=== PATIENT | male | born 1965 | race Caucasian/White ===

== ENCOUNTER 2022-01-18 13:21 | Inpatient (IN) | payer OTHER, SELFPAY ==
[2022-01-18] VITALS (10 sets, daily range): BP systolic 132–153; BP diastolic 76–110; PULSE 63–80; RESP 18–22; TEMP 35.9–37; O2SAT 96–99; BMI 25.8
[2022-01-18] MEDS: 0.9 % SODIUM CHLORIDE 1000 ml 1,000 ML IV (13:55)
--- NOTE | 2022-01-18 14:06 | CRLHL7_ITS ---
For Patients: As a result of the 21st Century Cures Act, medical imaging exams and procedure reports are released immediately into your electronic medical record. You may view this report before your referring provider. If you have questions, please contact your health care provider. INDICATION: Pain with nausea, lightheadedness and guarding COMPARISON: None TECHNIQUE: CT examination of the abdomen and pelvis was performed following the uneventful intravenous administration of 93 cc of Isovue 370. Thin section axial images were obtained from the lung bases through the pubic symphysis. Oral contrast was not administered. Please note that all CT scans at this facility use dose modulation, iterative reconstruction, and/or weight-based dosing when appropriate to reduce radiation dose to as low as reasonably achievable. FINDINGS: LUNG BASES: The lung bases as visualized appear normal.The heart size is normal at the lung bases. LIVER/BILIARY SYSTEM:The liver is normal in size and configuration. There is no focal mass and there is no intra- or extra hepatic biliary ductal dilatation.The gall bladder appears normal. ADRENALS: Normal KIDNEYS, URETERS and BLADDER:There is a 1 centimeter low-density lesion in the left upper pole consistent with a cyst. The kidneys are otherwise unremarkable. The ureters are not dilated. The bladder appears normal. SPLEEN:Normal appearance. PANCREAS: Appears normal. RETROPERITONEUM and MESENTERY: There is no mass, adenopathy or aortic aneurysm. GASTROINTESTINAL SYSTEM: The stomach is fluid filled and distended but there is no mechanical gastric outlet obstruction. There is significant abnormal dilation of small bowel with air-fluid levels. This is to the level of the mid small bowel. The point of transition appears been long segment of narrowed small bowel likely representing a stricture. There is no direct visible mass. No visible hernia, internal or abdominal wall. No intussusception. This is best seen on series 4, coronal images 20 through 24. PELVIS: Moderate free fluid presumably related to a small bowel obstruction. OSSEOUS STRUCTURES and ABDOMINAL WALL: There is an age-appropriate appearance of the osseous structures.No significant abdominal wall defect. OTHER: No free air IMPRESSION: High-grade mid small bowel obstruction. The etiology appears to be a long segment stricture as described above. Please note that all CT scans at this facility use dose modulation, iterative reconstruction, and/or weight-based dosing when appropriate to reduce radiation dose to as low as reasonably achievable. Dictated by Fernando Bishop MD @ 01/18/2022 3:12:27 PM (Electronically Signed)
--- NOTE | 2022-01-18 14:10 | ED.ABDPAIN ---
HPI - Abdominal Pain General Chief Complaint: Abdominal Pain Stated Complaint: Abdominal Pain Nausia Time Seen by Provider: 01/18/22 13:57 History of Present Illness HPI narrative: This 56-year-old male comes in with abdominal pain that began at 3:00 a.m. this morning, about 11 hours ago. He states that he woke up with this pain. Since then it has been constant and worsening. He rates the pain at around 8/10 in severity and has had some nausea with 1 episode of vomiting. He states that the pain is worse with movements. He does not report any fevers or diarrhea. Prior to this he has been in good health. Related Data Home Medications Medication Instructions Recorded Confirmed cyanocobalamin (vitamin B-12) 1,000 mcg PO DAILY 01/18/22 01/18/22 1,000 mcg tablet mirtazapine 15 mg tablet 7.5 mg PO HS 01/18/22 01/18/22 Allergies Allergy/AdvReac Type Severity Reaction Status Date / Time No Known Drug Allergies Allergy Verified 01/18/22 13:44 Review of Systems Status of ROS Reports: 10 or more systems reviewed and unremarkable except as noted in History and below Narrative Constitutional: No fevers, no weight gain or loss. Eyes: No discharge. No vision changes. HENT: No congestion, no sore throat, no ear pain. Cardiovascular: No chest pain, no palpitations. Respiratory: No shortness of breath, no wheezes, no cough. Gastrointestinal: Abdominal pain, nausea, and vomiting as described above. No diarrhea. Genitourinary: No dysuria, no hematuria. Musculoskeletal: Normal range of motion. Skin: No rashes, no pruritis. Neurological: No dizziness, weakness, sensory change, speech change. Endo/Heme/Allergies: No bruising or bleeding. No polydipsia. Pysch: no suicidality, no anxiety, no insomnia. All other systems reviewed and are negative. PFSH PFSH Social History Smoking Status: Never smoker How many standard drinks containing alcohol do you have on a typical day: 3 or 4 How often do you have six or more drinks on one occasion: Less than monthly AUDIT-C Alcohol total score: 2 Non-prescribed substance use: denies use service: No Exam Narrative: Exam Narrative: Constitutional: Well-developed, well-nourished, no acute distress. HEENT: Normocephalic, atraumatic. Neck: Normal range of motion. Nontender. Supple. Heart: Regular. No murmurs. Normal rate. Intact distal pulses. Lungs: Clear to auscultation. No chest discomfort. No wheezes, rhonchi, or rales. Abdomen: Decreased bowel sounds. Diffuse tenderness. Guarding. Genitalia: Deferred. Back: No midline tenderness. Normal range of motion. Extremities: Normal range of motion. No injury. Skin: Intact. No rash. Warm. No erythema or pallor. Neurologic: No altered sensation. No weakness. Alert and oriented. Psychiatric: No suicidality. No anxiety or depression. No insomnia. Nursing notes and vitals signs are reviewed. Const: Vital Signs, click to edit/add: Vital Signs - 24 hr 01/18/22 13:46 01/18/22 13:45 01/18/22 14:00 Temperature 96.6 F L Pulse Rate [Pulse Oximeter] 73 63 76 Respiratory Rate Blood Pressure [Le ft Upper Arm] 135/98 H 135/98 H 137/94 H Pulse Oximetry 98 99 97 Oxygen Delivery Me thod Room Air Room Air Room Air 01/18/22 14:30 Temperature Pulse Rate [Pulse Oximeter] 80 Respiratory Rate 20 Blood Pressure [Le ft Upper Arm] 153/110 H Pulse Oximetry 96 Oxygen Delivery Me thod Room Air Course Vital Signs Vital signs: Initial Vital Signs Pulse Rate 63 01/18/22 13:45 Respiratory Rate 22 01/18/22 13:45 Blood Pressure 135/98 H 01/18/22 13:45 Blood Pressure Mean 110 01/18/22 13:45 Blood Pressure Position Sitting 01/18/22 13:45 Pulse Oximetry 99 01/18/22 13:45 Oxygen Delivery Method 01/18/22 13:45 Vital Signs Pulse Rate 63 01/18/22 13:45 Respiratory Rate 22 01/18/22 13:45 Blood Pressure 135/98 H 01/18/22 13:45 Pulse Oximetry 99 01/18/22 13:45 Oxygen Delivery Method 01/18/22 13:45 Temperature 96.6 F L 01/18/22 13:46 Pulse Rate 80 01/18/22 14:30 Respiratory Rate 20 01/18/22 14:30 Blood Pressure 153/110 H 01/18/22 14:30 Pulse Oximetry 96 01/18/22 14:30 Oxygen Delivery Method 01/18/22 14:30 MDM - Abdominal Pain MDM Narrative Medical decision making narrative: This patient comes in with nausea, vomiting, abdominal distension and pain. An IV was established where he received IV fluids, Zofran, and Dilaudid. This brought sufficient relief to his symptoms. Lab results returned with a slightly elevated white count. A CT scan of the abdomen and pelvis was performed which shows evidence of small-bowel obstruction. The patient does not have any prior surgical history to his abdomen. I did contact the surgeon on-call, Dr. Jasso, in this regard and also arrange for admission through the hospitalist, Dr. Alvarado. The patient does have a fair amount of fluid in his abdomen with abdominal distension. An NG tube was placed with suction. Lab Data Labs: Lab Results 01/18/22 01/18/22 01/18/22 Range/Units 14:17 14:23 14:23 WBC 11.12 H (4.50-11.00) K/uL RBC 5.48 (4.30-5.90) m/uL Hgb 17.6 H (13.5-17.5) gm/dL Hct 51.1 (37.0-53.0) % MCV 93 (80-100) fL MCH 32 (26-34) pg MCHC 34 (32-36) gm/dL RDW Coeff of Ansley 11.3 L (11.5-15.5) % Plt Count 310 (140-440) K/uL Neut % (Auto) 81.4 H (42.0-72.0) % Lymph % (Auto) 10.2 L (20-44) % [place] % (Auto) 6.7 (0.0-11.0) % Eos % (Auto) 0.5 (0.0-7.0) % Baso % (Auto) 0.7 (0.0-3.0) % Neut # (Auto) 9.10 H (1.7-7.0) K/uL Lymph # (Auto) 1.10 (0.90-2.90) K/uL [place] # (Auto) 0.70 (0.00-0.90) K/UL Eos # (Auto) 0.10 (0.00-0.50) K/uL Baso # (Auto) 0.10 (0.00-0.30) K/uL Abs Immat Gran (auto) 0.06 (0.00-0.30) K/uL Sodium 137 (135-149) mmol/L Potassium 3.7 (3.6-5.1) mmol/L Chloride 102 (96-114) mmol/L Carbon Dioxide 25 (20-32) mmol/L BUN 13 (7-30) mg/dL Creatinine 0.7 (0.5-1.5) mg/dL Estimated Creat Clear 127.79 Estimated GFR 107 ml/min Glucose 103 (60-115) mg/dL Calcium 10.2 (8.4-10.6) mg/dL Total Bilirubin 1.1 (0.1-1.5) mg/dL Direct Bilirubin 0.2 (0.0-0.5) mg/dL AST 32 (12-35) U/L ALT 31 (4-50) U/L Alkaline Phosphatase 116 (40-150) U/L Total Protein 7.7 (6.0-8.3) g/dL Albumin 4.8 (3.3-5.0) g/dL Lipase 57 (23-300) U/L POC Troponin I 0.00 L (0.01-0.04) ng/ml Imaging Data CT scan - abdomen: Radiologist's impression: LUNG BASES: The lung bases as visualized appear normal.The heart size is normal at the lung bases. LIVER/BILIARY SYSTEM:The liver is normal in size and configuration. There is no focal mass and there is no intra- or extra hepatic biliary ductal dilatation.The gall bladder appears normal. ADRENALS: Normal KIDNEYS, URETERS and BLADDER:There is a 1 centimeter low-density lesion in the left upper pole consistent with a cyst. The kidneys are otherwise unremarkable. The ureters are not dilated. The bladder appears normal. SPLEEN:Normal appearance. PANCREAS: Appears normal. RETROPERITONEUM and MESENTERY: There is no mass, adenopathy or aortic aneurysm. GASTROINTESTINAL SYSTEM: The stomach is fluid filled and distended but there is no mechanical gastric outlet obstruction. There is significant abnormal dilation of small bowel with air-fluid levels. This is to the level of the mid small bowel. The point of transition appears been long segment of narrowed small bowel likely representing a stricture. There is no direct visible mass. No visible hernia, internal or abdominal wall. No intussusception. This is best seen on series 4, coronal images 20 through 24. PELVIS: Moderate free fluid presumably related to a small bowel obstruction. OSSEOUS STRUCTURES and ABDOMINAL WALL: There is an age-appropriate appearance of the osseous structures.No significant abdominal wall defect. OTHER: No free air IMPRESSION: High-grade mid small bowel obstruction. The etiology appears to be a long segment stricture as described above. ECG Data Attestation: I personally reviewed and interpreted this ECG as follows: Interpretation: Normal sinus rhythm. Rate 67 beats per minute. There are no ST or T-wave abnormalities. Discharge Plan Discharge Clinical Impression: Small bowel obstruction Patient Disposition: Admitted As Inpatient Condition: Unchanged Prescriptions: No Action mirtazapine 15 mg tablet 7.5 mg PO HS Label Comments: TAKE 1/2 TABLET (7.5 MG) BY MOUTH AT BEDTIME. cyanocobalamin (vitamin B-12) 1,000 mcg tablet 1,000 mcg PO DAILY Follow Up/Referrals: Markos Reis MD [Primary Care Provider] -
[2022-01-18] MEDS: ONDANSETRON 2 MG/ML inj 4 MG IVP ×4 (14:32→22:31)
[2022-01-18] MEDS: HYDROmorphone 0.5 mg/0.5 ml inj IVP ×2 (14:32→16:30)
[2022-01-18 15:02] LABS: Basophils Percent Auto 0.7 % (0.0-3.0); Eosinophils Percent Auto 0.5 % (0.0-7.0); Hematocrit 51.1 % (37.0-53.0); Hemoglobin* 17.6 gm/dL (13.5-17.5); Immature Granulocytes Abs Auto 0.06 K/uL (0.00-0.30); Lymphocytes Percent Auto 10.2 % (20-44); Mean Corpuscular HGB Conc 34 gm/dL (32-36); Mean Corpuscular Hemoglobin 32 pg (26-34); Mean Corpuscular Volume 93 fL (80-100); Monocytes Percent Auto 6.7 % (0.0-11.0); Neutrophils Percent Auto 81.4 % (42.0-72.0); Platelet Count* 310 K/uL (140-440); RDW Coefficient of Variation % 11.3 % (11.5-15.5); Red Blood Count 5.48 m/uL (4.30-5.90); White Blood Count* 11.12 K/uL (4.50-11.00)
[2022-01-18 15:17] LABS: Slide Review Reflex No
[2022-01-18 15:20] LABS: Albumin* 4.8 g/dL (3.3-5.0); Chloride* 102 mmol/L (96-114); Potassium* 3.7 mmol/L (3.6-5.1); Sodium* 137 mmol/L (135-149)
[2022-01-18 15:22] LABS: Creatinine* 0.7 mg/dL (0.5-1.5); Est. Creatinine Clearance* 127.79; Estimated Glomerular Filt Rate 107 ml/min
[2022-01-18 15:23] LABS: Alanine Aminotransferase* 31 U/L (4-50); Alkaline Phosphatase* 116 U/L (40-150); Aspartate Amino Transferase* 32 U/L (12-35); Bilirubin Direct* 0.2 mg/dL (0.0-0.5); Bilirubin Total* 1.1 mg/dL (0.1-1.5); Blood Urea Nitrogen* 13 mg/dL (7-30); Calcium* 10.2 mg/dL (8.4-10.6); Carbon Dioxide* 25 mmol/L (20-32); Glucose* 103 mg/dL (60-115); Lipase* 57 U/L (23-300); Total Protein* 7.7 g/dL (6.0-8.3)
--- NOTE | 2022-01-18 15:42 | PM.GSCN ---
History of Present Illness Consult details Date Seen: 01/18/22 Consult date: 01/18/22 Narrative: The patient is a 56-year-old male with abdominal pain. He states that his pain began around 330 in the morning. The pain wrapped across his mid abdomen. He thought maybe it was because he was constipated and so he drink orange juice and coffee to try to help him have a bowel movement. He could not get comfortable and the pain became worse. He spoke to a friend of his who is an MD who advised him to go to the emergency department. He states he then vomited and had a small bowel movement. He has not had a fever. He has never had anything like this before. He states that he is uncomfortable but his pain is better since he has been admitted. He states that he normally has 2-3 soft bowel movements a day. He really has when he would consider constipation or firm stools. He did have a colonoscopy at age 48 for blood in his stool. This was reportedly normal. He has never had pain like this before. He does not have chronic abdominal pain or diarrhea. 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 He drinks 1-3 alcoholic beverages per day. He does not smoke. Smoking Status: Never smoker How many standard drinks containing alcohol do you have on a typical day: 3 or 4 How often do you have six or more drinks on one occasion: Less than monthly AUDIT-C Alcohol total score: 2 Non-prescribed substance use: denies use service: No Meds Home Medications and Allergies Home Medications Medication Instructions Recorded Confirmed Type cyanocobalamin (vitamin B-12) 1,000 mcg PO DAILY 01/18/22 01/18/22 History 1,000 mcg tablet mirtazapine 15 mg tablet 7.5 mg PO HS 01/18/22 01/18/22 History Allergies Allergy/AdvReac Type Severity Reaction Status Date / Time No Known Drug Allergies Allergy Verified 01/18/22 13:44 Exam Narrative: Exam Narrative: General: Alert, oriented, no acute distress CV: Regular rate and rhythm Respiratory: Breathing nonlabored on room air HEENT: NG in place. Brownish drainage, 700 mL out so far Abdomen: Mildly distended and somewhat tender to palpation without guarding or rebound. Const: Vital Signs, click to edit/add: Vital Signs - 24 hr 01/18/22 13:46 01/18/22 13:45 01/18/22 14:00 Temperature 96.6 F L Pulse Rate [Pulse Oximeter] 73 63 76 Respiratory Rate 18 22 22 Blood Pressure [Le ft Upper Arm] 135/98 H 135/98 H 137/94 H Pulse Oximetry 98 99 97 Oxygen Delivery Me thod Room Air Room Air Room Air 01/18/22 14:30 Temperature Pulse Rate [Pulse Oximeter] 80 Respiratory Rate 20 Blood Pressure [Le ft Upper Arm] 153/110 H Pulse Oximetry 96 Oxygen Delivery Me thod Room Air Results Labs Labs: Abnormal lab results 01/18/22 01/18/22 Range/Units 14:17 14:23 WBC 11.12 H (4.50-11.00) K/uL Hgb 17.6 H (13.5-17.5) gm/dL RDW Coeff of Ansley 11.3 L (11.5-15.5) % Neut % (Auto) 81.4 H (42.0-72.0) % Lymph % (Auto) 10.2 L (20-44) % Neut # (Auto) 9.10 H (1.7-7.0) K/uL POC Troponin I 0.00 L (0.01-0.04) ng/ml Diabetes panel 01/18/22 Range/Units 14:23 Sodium 137 (135-149) mmol/L Potassium 3.7 (3.6-5.1) mmol/L Chloride 102 (96-114) mmol/L Carbon Dioxide 25 (20-32) mmol/L BUN 13 (7-30) mg/dL Creatinine 0.7 (0.5-1.5) mg/dL Glucose 103 (60-115) mg/dL Calcium 10.2 (8.4-10.6) mg/dL AST 32 (12-35) U/L ALT 31 (4-50) U/L Alkaline Phosphatase 116 (40-150) U/L Total Protein 7.7 (6.0-8.3) g/dL Albumin 4.8 (3.3-5.0) g/dL Calcium panel 01/18/22 Range/Units 14:23 Calcium 10.2 (8.4-10.6) mg/dL Albumin 4.8 (3.3-5.0) g/dL Pituitary panel 01/18/22 Range/Units 14:23 Sodium 137 (135-149) mmol/L Potassium 3.7 (3.6-5.1) mmol/L Chloride 102 (96-114) mmol/L Carbon Dioxide 25 (20-32) mmol/L BUN 13 (7-30) mg/dL Creatinine 0.7 (0.5-1.5) mg/dL Glucose 103 (60-115) mg/dL Calcium 10.2 (8.4-10.6) mg/dL Adrenal panel 01/18/22 Range/Units 14:23 Sodium 137 (135-149) mmol/L Potassium 3.7 (3.6-5.1) mmol/L Chloride 102 (96-114) mmol/L Carbon Dioxide 25 (20-32) mmol/L BUN 13 (7-30) mg/dL Creatinine 0.7 (0.5-1.5) mg/dL Glucose 103 (60-115) mg/dL Calcium 10.2 (8.4-10.6) mg/dL Total Bilirubin 1.1 (0.1-1.5) mg/dL AST 32 (12-35) U/L ALT 31 (4-50) U/L Alkaline Phosphatase 116 (40-150) U/L Total Protein 7.7 (6.0-8.3) g/dL Albumin 4.8 (3.3-5.0) g/dL All other labs normal. Imaging Abdomen CT scan report/results: report reviewed (Diagnostic Imaging Report Patient: Jarod Stevens WMR#: [id number]: [id number]:[id number]: EDService Date: 01/18/22Attending Dr: Ordering Physician: Amari Merino M.D. Date of Service: 01/18/22 Procedure(s): CT abdomen pelvis w con Accession Number(s): [id number] cc: Deshaun Merino) and image reviewed EKG: report reviewed (Normal sinus rhythm) Assessment and Plan Assessment and plan (1) Small bowel obstruction: Status: Acute Plan The patient is a 56-year-old male with a de Mac bowel obstruction. I spoke with him and his about bowel obstructions as well as that the most common cause is adhesions. Since he has not had abdominal surgery, we also must be concerned about malignancy. The CT scan is concerning for a long segment stricture. This can be seen in inflammatory bowel disease. He has no history of this, however. I recommend that we continue with conservative management for now with NG tube placement. I would like him to be to NG suction overnight and I will order Gastrografin study in the morning. I explained the rationale behind this and if the Gastrografin does go all the way through to his colon, not only can it be therapeutic, then it would allow him to discharge home and have further outpatient evaluation. I would consider a small-bowel follow-through to evaluate the possible stricture and even possibly laparoscopy after repeat CT scan once he has recovered. He understands that if the Gastrografin does not pass through then we would plan on surgical exploration. If his pain worsens or he becomes systemically ill as evidence by increasing white count, CRP, lactate, tachycardia etcetera, then I would plan on emergent exploration. He is agreeable with this plan.
--- NOTE | 2022-01-18 16:00 | ED.NURSE ---
~1600 desat to 86% after IV dilaudid given. 2L O2 via NC applied. O2 now at 97%
--- NOTE | 2022-01-18 16:21 | CRLHL7_ITS ---
For Patients: As a result of the Century Cures Act, medical imaging exams and procedure reports are released immediately into your electronic medical record. You may view this report before your referring provider. If you have questions, please contact your health care provider. Indication: Tube placement. Technique: Abdomen 1 view. Comparison: CT abdomen and pelvis earlier same day. Impression: NG tube tip projects over proximal gastric body. Dilated loops of small bowel, consistent with small bowel obstruction. Dictated by Too Duncan MD @ 01/18/2022 6:41:02 PM (Electronically Signed)
[2022-01-18 16:46] LABS: SARS PCR* Negative SARS-CoV-2 (Negative)
--- NOTE | 2022-01-18 17:28 | ED.NURSE ---
Patient had 700 ml out of NG from time of insertion. transferred to floor via wc with significant other.
--- NOTE | 2022-01-18 17:46 | PM.IMHP1 ---
Hospitalist- H&P: HPI History of Present Illness Date Seen: 01/18/22 Chief complaint: Abdominal Pain Nausia Narrative: Jarod Stevens is a 56 year old male who began having abdominal discomfort at 3:00 this morning (15hours ago). He was unable to sleep so got up and had coffee and orange juice. As the morning progressed the abd pain worsened and he vomited once. Pt presented to the ED where he had a large nonblious vomitus. Evaluation in the ED reveled an elevation in his White Blood Cell Count at 11.12. Ekg was normal. CT of the abd and pelvis showed a High Grade Mid Small Bowel Obstruction consistent with a long section stricture. Pt has passed no flatus and has previously had no blood in his stool. He has been feeling well with a long bike ride done last night. No abd surgery and no previous similar symptoms. Pt given normal saline, hydromorphone and zofran in the ED and was subsequently admitted after an NG tube was placed. 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 He drinks 1-3 alcoholic beverages per day. He does not smoke. Smoking Status: Never smoker How many standard drinks containing alcohol do you have on a typical day: 3 or 4 How often do you have six or more drinks on one occasion: Less than monthly AUDIT-C Alcohol total score: 2 Non-prescribed substance use: denies use service: No Meds Home Medications and Allergies Home Medications Medication Instructions Recorded Confirmed Type cyanocobalamin (vitamin B-12) 1,000 mcg PO DAILY 01/18/22 01/18/22 History 1,000 mcg tablet mirtazapine 15 mg tablet 7.5 mg PO HS 01/18/22 01/18/22 History Home Medication Comments: Pt states that currently he is only taking Remeron 7.5 mg at hs Allergies Allergy/AdvReac Type Severity Reaction Status Date / Time No Known Drug Allergies Allergy Verified 01/18/22 13:44 Exam Narrative: Exam Narrative: EXAM GENERAL: Patient appears comfortable with NG in place. EYES: No scleral icterus. THYROID: no thyroid nodules or thyromegaly. LYMPH: No supraclavicular or cervical lymphadenopathy. SKIN: Visible skin seen during exam normal or with benign process only. EXT: No dependent lower extremity pedal edema. HEART: Regular rate and rhythm with no murmurs, rubs, or gallops. LUNGS: Clear to auscultation bilaterally with no crackles or wheezes. ABD: Hypoactive bowel sounds diffusely tending without rebound. PSYCH: Good eye contact, speech is not pressured. Const: Vital Signs, click to edit/add: Vital Signs - 24 hr 01/18/22 13:46 01/18/22 13:45 01/18/22 14:00 Temperature 96.6 F L Pulse Rate [Pulse Oximeter] 73 63 76 Respiratory Rate 18 22 22 Blood Pressure [Le ft Upper Arm] 135/98 H 135/98 H 137/94 H Pulse Oximetry 98 99 97 Oxygen Delivery Me thod Room Air Room Air Room Air Oxygen Flow Rate 01/18/22 14:30 01/18/22 16:00 01/18/22 17:00 Temperature Pulse Rate [Pulse Oximeter] 80 68 Respiratory Rate 20 20 Blood Pressure [Le ft Upper Arm] 153/110 H 144/95 H Pulse Oximetry 96 97 97 Oxygen Delivery Me thod Room Air Nasal Cannula Nasal Cannula Oxygen Flow Rate 2 Hospitalist - H&P: Result Labs Labs: Short CBC 01/18/22 Range/Units 14:17 WBC 11.12 H (4.50-11.00) K/uL Hgb 17.6 H (13.5-17.5) gm/dL Hct 51.1 (37.0-53.0) % Plt Count 310 (140-440) K/uL BMP 01/18/22 14:23 Sodium 137 Potassium 3.7 Chloride 102 Carbon Dioxide 25 BUN 13 Creatinine 0.7 Glucose 103 Calcium 10.2 Liver Function 01/18/22 Range/Units 14:23 Total Bilirubin 1.1 (0.1-1.5) mg/dL Direct Bilirubin 0.2 (0.0-0.5) mg/dL AST 32 (12-35) U/L ALT 31 (4-50) U/L Alkaline Phosphatase 116 (40-150) U/L Albumin 4.8 (3.3-5.0) g/dL Imaging CT scan - abdomen: Radiologist's impression: Abd Film shows small bowel obstruction which is confirmed on CT of the abd and pelvis being a high grade mid small bowel obstruction consistent with long segment stricture. Assessment and Plan Assessment and plan (1) Small bowel obstruction: Status: Acute Assessment and Plan: General Surgery consulted. Electrolytes are stable. Hemoconcentration noted on CBC. NG tube in place to low suction. Bowel rest. Pt feeling better. Will hydrate overnight with CBC, CMP in the AM. Lactate and CRP ordered now. General Surgery considering Gastrographin challenge. Pt to be a full code. Will try to ambulate with assistance. (2) Insomnia: Status: Chronic Assessment and Plan: Will hold on oral Remeron (3) MANUEL (obstructive sleep apnea): Status: Chronic Assessment and Plan: Pt has discontinued his CPAP and his dental apliance. Will place on oxymetry (4) Alcohol use: Problem comment: Pt has up to three alcoholic beverages per day. Status: Chronic Assessment and Plan: Will place on CIWA protocol
[2022-01-18 18:00] LABS: Lactate* 1.5 mmol/L (0.5-1.9)
[2022-01-18] MEDS: 0.9 % SODIUM CHLORIDE 1000 ml 1,000 ML 125 ML IV (18:26)
[2022-01-18] MEDS: LORazepam 2 MG/ML inj 0.5 MG IVP (18:28)
[2022-01-18 19:35] LABS: C Reactive Protein* < 0.5 mg/dL (0.5-1.0)
[2022-01-18] MEDS: PROCHLORPERAZINE 5 MG/ML VIAL IV (19:39)
[2022-01-19] VITALS (12 sets, daily range): BP systolic 125–142; BP diastolic 77–93; PULSE 78–94; RESP 16–18; TEMP 36.7–36.8; O2SAT 91–94
--- NOTE | 2022-01-19 00:06 | PC.NURSE ---
Pt N/V, see MAR for mediction administration with relief. Pt was able to tolerate NG tube clamp for 2 hours while gastrografin was administered @2200. Restarted LIS of NG tube @0000. X-ray ordered for 799 am. Pt states last regular BM Wednesday 01/17, usually has 3 BM daily.
[2022-01-19] MEDS: 0.9 % SODIUM CHLORIDE 1000 ml 1,000 ML 125 ML IV ×3 (02:15→18:37)
[2022-01-19] MEDS: PROCHLORPERAZINE 5 MG/ML VIAL IV ×2 (02:26→11:58)
[2022-01-19 06:24] LABS: Basophils Absolute Auto 0.06 K/uL (0.00-0.30); Basophils Percent Auto 0.6 % (0.0-3.0); Eosinophils Absolute Auto 0.08 K/uL (0.00-0.50); Eosinophils Percent Auto 0.8 % (0.0-7.0); Hematocrit 49.6 % (37.0-53.0); Hemoglobin* 16.7 gm/dL (13.5-17.5); Immature Granulocytes Abs Auto 0.01 K/uL (0.00-0.30); Lymphocytes Percent Auto 6.8 % (20-44); Mean Corpuscular HGB Conc 34 gm/dL (32-36); Mean Corpuscular Hemoglobin 32 pg (26-34); Mean Corpuscular Volume 95 fL (80-100); Monocytes Percent Auto 11.2 % (0.0-11.0); Neutrophils Percent Auto 80.5 % (42.0-72.0); Platelet Count* 278 K/uL (140-440); RDW Coefficient of Variation % 11.6 % (11.5-15.5); Red Blood Count 5.22 m/uL (4.30-5.90); White Blood Count* 10.37 K/uL (4.50-11.00)
[2022-01-19 06:42] LABS: Chloride* 103 mmol/L (96-114); Sodium* 139 mmol/L (135-149)
[2022-01-19 06:45] LABS: Alanine Aminotransferase* 23 U/L (4-50); Alkaline Phosphatase* 81 U/L (40-150); Aspartate Amino Transferase* 25 U/L (12-35); Blood Urea Nitrogen* 20 mg/dL (7-30); Calcium* 8.9 mg/dL (8.4-10.6); Carbon Dioxide* 28 mmol/L (20-32); Creatinine* 0.9 mg/dL (0.5-1.5); Estimated Glomerular Filt Rate 100 ml/min; Glucose* 111 mg/dL (60-115); Total Protein* 6.6 g/dL (6.0-8.3)
--- NOTE | 2022-01-19 06:56 | PC.NURSE ---
Addendum entered by Tyra Delvalle RN 01/19/22 07:03: NG PLACEMENT IN RIGHT NARE AT 53CM. Original Note: END OF SHIFT NOTE: PT QUIET AND COOPERATIVE. PT DENIES CP AND SOB. PT REPORTS NAUSEA THAT WAS RELIEVED WITH NG ON LIS AND ADMINISTRATION OF PRN COMPAZINE. PT ON CONTINUOUS PLUSE OX NOC R/T PT HX OF MANUEL. CIWA SCORES 0 DURING THIS SHIFT. VSS ON RA; AFEBRILE. LSCTA. TOTAL OF 450ML OF BROWN OUTPUT FROM NG. MOVES INDEPENDENTLY TO BATHROOM, HOWEVER REQUIRES ASSISTANCE UNPLUGGING IV POLE AND DISCONNECTING FROM LIS. HYPOACTIVE BS.
[2022-01-19 07:05] LABS: Slide Review Reflex No
--- NOTE | 2022-01-19 08:00 | CRLHL7_ITS ---
For Patients: As a result of the Century Cures Act, medical imaging exams and procedure reports are released immediately into your electronic medical record. You may view this report before your referring provider. If you have questions, please contact your health care provider. INDICATION: Follow-up SBO. COMPARISON: Abdominal radiograph 01/18/2022. CT of the abdomen and pelvis 01/18/2022. TECHNIQUE: Abdomen, 2 views. FINDINGS: Enteric tube with tip projected over the proximal stomach and side hole near the gastroesophageal junction. Enteric contrast within the stomach. Again seen are dilated loops of small bowel in the left abdomen compatible with obstruction. Moderate amount of stool in the ascending colon. No pneumatosis. Excreted contrast within the urinary bladder. The bones are unremarkable. IMPRESSION: 1. Enteric tube with tip projected over the proximal stomach and side hole near the GE junction. 2. Dilated loops of small bowel in the left abdomen compatible with obstruction. Dictated by Radha Deutsch MD @ 01/19/2022 9:56:52 AM (Electronically Signed)
--- NOTE | 2022-01-19 12:58 | PM.GSPN ---
Subjective Subjective Date Seen: 01/19/22 Interval history: Jarod had a large emesis last evening prior to administration of Gastrografin. He has been feeling better since. He has no other nausea. His pain is significantly better. Not passing any gas. Exam Narrative: Exam Narrative: General: No acute distress CV: Regular rate and rhythm HEENT: NG in place with brownish fluid in the canister. 1600 mL out overnight +500 emesis. Abdomen: Soft, nontender. No bowel sounds. Const: Vital Signs, click to edit/add: Vital Signs - 24 hr 01/18/22 13:46 01/18/22 13:45 01/18/22 14:00 Temperature 96.6 F L Pulse Rate [Left P ulse Oximeter] Pulse Rate [Pulse Oximeter] 73 63 76 Respiratory Rate 18 22 22 Blood Pressure [Le ft Upper Arm] 135/98 H 135/98 H 137/94 H Blood Pressure [Ri ght Arm] Pulse Oximetry 98 99 97 Oxygen Delivery Al thod Room Air Room Air Room Air Oxygen Flow Rate 01/18/22 14:30 01/18/22 16:00 01/18/22 17:00 Temperature Pulse Rate [Left P ulse Oximeter] Pulse Rate [Pulse Oximeter] 80 68 Respiratory Rate 20 20 Blood Pressure [Le ft Upper Arm] 153/110 H 144/95 H Blood Pressure [Ri ght Arm] Pulse Oximetry 96 97 97 Oxygen Delivery Al thod Room Air Nasal Cannula Nasal Cannula Oxygen Flow Rate 2 01/18/22 18:06 01/18/22 18:05 01/18/22 19:00 Temperature 98.6 F 98.3 F Pulse Rate [Left P ulse Oximeter] 70 71 Pulse Rate [Pulse Oximeter] Respiratory Rate 20 20 20 Blood Pressure [Le ft Upper Arm] Blood Pressure [Ri ght Arm] 138/80 138/80 132/76 Pulse Oximetry 96 96 97 Oxygen Delivery Me thod Room Air Room Air Room Air Oxygen Flow Rate 01/18/22 19:00 01/18/22 20:00 01/19/22 00:45 Temperature 98.3 F 98.1 F Pulse Rate [Left P ulse Oximeter] 71 92 Pulse Rate [Pulse Oximeter] Respiratory Rate 20 20 16 Blood Pressure [Le ft Upper Arm] Blood Pressure [Ri ght Arm] 132/76 127/82 Pulse Oximetry 97 97 94 Oxygen Delivery Me thod Room Air Room Air Room Air Oxygen Flow Rate 01/19/22 00:45 01/19/22 03:00 01/19/22 07:49 Temperature 98.1 F Pulse Rate [Left P ulse Oximeter] 92 86 94 Pulse Rate [Pulse Oximeter] Respiratory Rate 16 16 18 Blood Pressure [Le ft Upper Arm] Blood Pressure [Ri ght Arm] 125/80 129/86 Pulse Oximetry 93 91 Oxygen Delivery Me thod Room Air Room Air Oxygen Flow Rate 01/19/22 07:50 01/19/22 07:00 01/19/22 11:41 Temperature 98.1 F 98.2 F Pulse Rate [Left P ulse Oximeter] 94 94 87 Pulse Rate [Pulse Oximeter] Respiratory Rate 18 18 16 Blood Pressure [Le ft Upper Arm] Blood Pressure [Ri ght Arm] 129/86 134/93 H Pulse Oximetry 91 94 Oxygen Delivery Me thod Room Air Room Air Oxygen Flow Rate 2 01/19/22 11:53 Temperature 98.2 F Pulse Rate [Left P ulse Oximeter] 87 Pulse Rate [Pulse Oximeter] Respiratory Rate 16 Blood Pressure [Le ft Upper Arm] Blood Pressure [Ri ght Arm] 134/93 H Pulse Oximetry 94 Oxygen Delivery Me thod Room Air Oxygen Flow Rate 0 Labs/Imaging Labs Labs: White blood cell count is down to 10 from 11. Lactate and CRP yesterday were normal. Imaging Imaging: KUB from this morning shows contrast only in the stomach with persistent dilated small bowel loops. I did discuss the CT scan with Radiology and he looked the images together, looking for the transition point/stricture/looking for possible masses. Progress Note: A&P Assessment and plan (1) Small bowel obstruction: Problem details: The patient is a 56-year-old male with de Mac small bowel obstruction. He is feeling markedly better today, however unfortunately his Gastrografin is sitting in his stomach still. I told him that this means that is less likely to resolve on his own. However this is not necessarily a bad thing since this is a de Mac obstruction, then exploration is certainly warranted if he does not resolve quickly. He we will plan on NG decompression overnight and repeat x-ray in the morning. If he has not made significant progress then I would plan on surgery tomorrow afternoon. We discussed laparotomy, possibly a bowel resection as well as recovery. If he does make some progress I explained that we could plan to give him 1 more day if he does make some progress overnight, however I told him that I thought earlier exploration may be better given that we do not know the cause for the obstruction. He and his asked excellent questions and were agreeable with the plan. Continue NG suction and NPO status today. Will recheck labs in the morning. Status: Acute
--- NOTE | 2022-01-19 15:24 | PM.IMPN1 ---
Progress Note: A&P Assessment and plan (1) Small bowel obstruction: Problem details: The patient is a 56-year-old male with de Mac small bowel obstruction. He is feeling markedly better today, however unfortunately his Gastrografin is sitting in his stomach still. I told him that this means that is less likely to resolve on his own. However this is not necessarily a bad thing since this is a de Mac obstruction, then exploration is certainly warranted if he does not resolve quickly. He we will plan on NG decompression overnight and repeat x-ray in the morning. If he has not made significant progress then I would plan on surgery tomorrow afternoon. We discussed laparotomy, possibly a bowel resection as well as recovery. If he does make some progress I explained that we could plan to give him 1 more day if he does make some progress overnight, however I told him that I thought earlier exploration may be better given that we do not know the cause for the obstruction. He and his asked excellent questions and were agreeable with the plan. Continue NG suction and NPO status today. Will recheck labs in the morning. Status: Acute Assessment and Plan: Primarily managed by General surgery. If patient were to need surgical intervention, he is low risk for anesthesia or surgical complications. No history of cardiac or respiratory disease. Labs have been reassuring. (2) MANUEL (obstructive sleep apnea): Status: Chronic Assessment and Plan: Quiescent Plan Continue SBO management per general surgery, hospitalist team will follow. Subjective Date Seen: 01/19/22 Interval history: Patient seen with today. They have no concerns for the hospitalist team. Exam Narrative: Exam Narrative: Patient is alert and oriented, sitting comfortably in bed. Drainage noted from NG tube. No lower extremity edema, wearing Freddy hose. Const: Vital Signs, click to edit/add: Vital Signs - 24 hr 01/18/22 16:00 01/18/22 17:00 01/18/22 18:06 Temperature Pulse Rate [Left P ulse Oximeter] Pulse Rate [Pulse Oximeter] 68 Respiratory Rate 20 20 Blood Pressure [Le ft Upper Arm] 144/95 H Blood Pressure [Ri ght Arm] 138/80 Pulse Oximetry 97 97 96 Oxygen Delivery Me thod Nasal Cannula Nasal Cannula Room Air Oxygen Flow Rate 2 01/18/22 18:05 01/18/22 19:00 01/18/22 19:00 Temperature 98.6 F 98.3 F 98.3 F Pulse Rate [Left P ulse Oximeter] 70 71 71 Pulse Rate [Pulse Oximeter] Respiratory Rate 20 20 20 Blood Pressure [Le ft Upper Arm] Blood Pressure [Ri ght Arm] 138/80 132/76 132/76 Pulse Oximetry 96 97 97 Oxygen Delivery Me thod Room Air Room Air Room Air Oxygen Flow Rate 01/18/22 20:00 01/19/22 00:45 01/19/22 00:45 Temperature 98.1 F Pulse Rate [Left P ulse Oximeter] 92 92 Pulse Rate [Pulse Oximeter] Respiratory Rate 20 16 16 Blood Pressure [Le ft Upper Arm] Blood Pressure [Ri ght Arm] 127/82 Pulse Oximetry 97 94 Oxygen Delivery Me thod Room Air Room Air Oxygen Flow Rate 01/19/22 03:00 01/19/22 07:49 01/19/22 07:50 Temperature 98.1 F 98.1 F Pulse Rate [Left P ulse Oximeter] 86 94 94 Pulse Rate [Pulse Oximeter] Respiratory Rate 16 18 18 Blood Pressure [Le ft Upper Arm] Blood Pressure [Ri ght Arm] 125/80 129/86 129/86 Pulse Oximetry 93 91 91 Oxygen Delivery Me thod Room Air Room Air Room Air Oxygen Flow Rate 2 01/19/22 07:00 01/19/22 11:41 01/19/22 11:53 Temperature 98.2 F 98.2 F Pulse Rate [Left P ulse Oximeter] 94 87 87 Pulse Rate [Pulse Oximeter] Respiratory Rate 18 16 16 Blood Pressure [Le ft Upper Arm] Blood Pressure [Ri ght Arm] 134/93 H 134/93 H Pulse Oximetry 94 94 Oxygen Delivery Me thod Room Air Room Air Oxygen Flow Rate 0 Labs Labs: Laboratory Results - last 24 hr 01/18/22 01/18/22 01/18/22 14:23 15:35 17:56 WBC RBC Hgb Hct MCV MCH MCHC RDW Coeff of [place] Plt Count Neut % (Auto) Lymph % (Auto) [place] % (Auto) Eos % (Auto) Baso % (Auto) Neut # (Auto) Lymph # (Auto) [place] # (Auto) Eos # (Auto) Baso # (Auto) Abs Immat Gran (auto) Sodium 137 Potassium 3.7 Chloride 102 Carbon Dioxide 25 BUN 13 Creatinine 0.7 Estimated Creat Clear 127.79 Estimated GFR 107 Glucose 103 Lactate Calcium 10.2 Total Bilirubin 1.1 Direct Bilirubin 0.2 AST 32 ALT 31 Alkaline Phosphatase 116 C-Reactive Protein < 0.5 L Total Protein 7.7 Albumin 4.8 Lipase 57 SARS-CoV-2 (PCR) Negative SARS-CoV-2 01/18/22 01/19/22 01/19/22 17:56 06:05 06:05 WBC 10.37 RBC 5.22 Hgb 16.7 Hct 49.6 MCV 95 MCH 32 MCHC 34 RDW Coeff of [place] 11.6 Plt Count 278 Neut % (Auto) 80.5 H Lymph % (Auto) 6.8 L [place] % (Auto) 11.2 H Eos % (Auto) 0.8 Baso % (Auto) 0.6 Neut # (Auto) 8.30 H Lymph # (Auto) 0.70 L [place] # (Auto) 1.20 H Eos # (Auto) 0.08 Baso # (Auto) 0.06 Abs Immat Gran (auto) 0.01 Sodium 139 Potassium 4.0 Chloride 103 Carbon Dioxide 28 BUN 20 Creatinine 0.9 Estimated Creat Clear 99.40 Estimated GFR 100 Glucose 111 Lactate 1.5 Calcium 8.9 Total Bilirubin 1.0 Direct Bilirubin AST 25 ALT 23 Alkaline Phosphatase 81 C-Reactive Protein Total Protein 6.6 Albumin 4.0 Lipase SARS-CoV-2 (PCR)
[2022-01-19] MEDS: ONDANSETRON 2 MG/ML inj 4 MG IVP (16:25)
[2022-01-19] MEDS: MORPHINE 2 MG/ML inj IVP ×3 (16:43→22:28)
--- NOTE | 2022-01-19 19:00 | PC.NURSE ---
End of shift-- Very pleasant and cooperative, alert and oriented patient. VSS and pt is afebrile. SPO2 maintained >90% on RA while awake. He c/o some abdominal discomfort this evening and Dr. Glover was notified. Pt was given Morphine per MD order and stated relief. CIWAs 0-2. LS CTA. BS very hypoactive to absent this evening. He denies passing flatus. He has c/o nausea twice today and was given Compazine and Zofran and stated relief. NG is patent to LIS and drained approximately 200ml of brown gastric contents today. Pt voided only about 150ml of dark eugenio concentrated urine during the day and an additional 100ml this afternoon. Note was left with charge nurse for MD. He ambulated in the hallway with twice today and tolerated it well. Report to oncoming shift.
[2022-01-20] VITALS (8 sets, daily range): BP systolic 120–145; BP diastolic 77–90; PULSE 71–86; RESP 14–18; TEMP 36.7–37; O2SAT 91–93
[2022-01-20] MEDS: MORPHINE 2 MG/ML inj IVP ×2 (00:42→06:31)
[2022-01-20] MEDS: 0.9 % SODIUM CHLORIDE 1000 ml 1,000 ML 125 ML IV ×3 (02:01→21:24)
[2022-01-20 06:40] LABS: Basophils Absolute Auto 0.04 K/uL (0.00-0.30); Basophils Percent Auto 0.5 % (0.0-3.0); Eosinophils Absolute Auto 0.18 K/uL (0.00-0.50); Eosinophils Percent Auto 2.2 % (0.0-7.0); Hemoglobin* 15.6 gm/dL (13.5-17.5); Immature Granulocytes Abs Auto 0.04 K/uL (0.00-0.30); Lymphocytes Percent Auto 13.9 % (20-44); Mean Corpuscular HGB Conc 33 gm/dL (32-36); Mean Corpuscular Hemoglobin 32 pg (26-34); Mean Corpuscular Volume 97 fL (80-100); Monocytes Percent Auto 11.1 % (0.0-11.0); Neutrophils Absolute Auto 5.98 K/uL (1.7-7.0); Neutrophils Percent Auto 71.8 % (42.0-72.0); Platelet Count* 260 K/uL (140-440); RDW Coefficient of Variation % 11.5 % (11.5-15.5); Red Blood Count 4.84 m/uL (4.30-5.90); White Blood Count* 8.32 K/uL (4.50-11.00)
[2022-01-20 06:41] LABS: Slide Review Reflex No
--- NOTE | 2022-01-20 06:44 | PC.NURSE ---
[id number]: Patient pleasant and cooperative. SBA d/t NG tube and IV. Walked halls x1. Rates pain 3/10. PRN Morphine x4 administered for relief. Denies passing flatus. Reports mild nausea, declined antiemetics. NG patent and putting out small amounts of green gastric contents. BS hypo on LLQ and LUQ at beginning of shift but absent at end of shift, absent on RUQ and RLQ all shift.
--- NOTE | 2022-01-20 08:00 | CRLHL7_ITS ---
For Patients: As a result of the Century Cures Act, medical imaging exams and procedure reports are released immediately into your electronic medical record. You may view this report before your referring provider. If you have questions, please contact your health care provider. Indication: Follow-up obstruction Technique: Abdomen 1 view. Comparison: 01/19/2022 Findings: Contrast now located in the right colon. NG tube in the stomach. Mild small bowel wall/mucosal thickening again noted. No extravasation. No pleural effusion. Impression: No small bowel obstruction. Residual mild inflammation of the small bowel. Dictated by Yousif Burch MD @ 01/20/2022 8:46:11 AM (Electronically Signed)
[2022-01-20 09:23] LABS: Chloride* 105 mmol/L (96-114); Potassium* 3.9 mmol/L (3.6-5.1); Sodium* 139 mmol/L (135-149)
[2022-01-20 09:26] LABS: Blood Urea Nitrogen* 24 mg/dL (7-30); Calcium* 8.5 mg/dL (8.4-10.6); Carbon Dioxide* 26 mmol/L (20-32); Creatinine* 0.7 mg/dL (0.5-1.5); Est. Creatinine Clearance* 127.79; Estimated Glomerular Filt Rate 107 ml/min; Glucose* 96 mg/dL (60-115)
[2022-01-20] MEDS: phenoL 1.4 % THROAT SPRAY 1 SPRAY MUCOUS MEM (10:00)
--- NOTE | 2022-01-20 11:06 | PM.GSPN ---
Subjective Subjective Date Seen: 01/20/22 Interval history: Jarod is feeling better today. No flatus yet. No nausea. Exam Narrative: Exam Narrative: General: No acute distress NG in place. Output [place] accurately charted though per nursing and has decreased Abdomen: Soft. Minimally tender. Hypoactive bowel sounds noted. Const: Vital Signs, click to edit/add: Vital Signs - 24 hr 01/19/22 11:41 01/19/22 11:53 01/19/22 16:22 Temperature 98.2 F 98.2 F Pulse Rate [Left P ulse Oximeter] 87 87 78 Respiratory Rate 16 16 16 Blood Pressure [Ri ght Arm] 134/93 H 134/93 H 135/89 Pulse Oximetry 94 94 93 Oxygen Delivery Me thod Room Air Room Air Room Air Oxygen Flow Rate 0 01/19/22 16:34 01/19/22 16:00 01/19/22 15:00 Temperature 98.2 F 98.2 F Pulse Rate [Left P ulse Oximeter] 78 78 78 Respiratory Rate 16 16 16 Blood Pressure [Ri ght Arm] 135/89 135/89 Pulse Oximetry 93 93 Oxygen Delivery Me thod Room Air Room Air Oxygen Flow Rate 0 0 01/19/22 20:00 01/19/22 20:00 01/20/22 00:00 Temperature 98.3 F 98.3 F 98.4 F Pulse Rate [Left P ulse Oximeter] 85 85 86 Respiratory Rate 16 16 16 Blood Pressure [Ri ght Arm] 142/77 H 142/77 H 134/77 Pulse Oximetry 92 92 92 Oxygen Delivery Me thod Room Air Room Air Room Air Oxygen Flow Rate 0 01/20/22 00:00 01/20/22 04:00 01/20/22 04:00 Temperature 98.4 F 98.6 F 98.6 F Pulse Rate [Left P ulse Oximeter] 86 86 86 Respiratory Rate 16 18 18 Blood Pressure [Ri ght Arm] 134/77 131/78 131/78 Pulse Oximetry 92 91 91 Oxygen Delivery Me thod Room Air Room Air Room Air Oxygen Flow Rate 0 01/20/22 07:43 01/20/22 07:43 Temperature 98.2 F Pulse Rate [Left P ulse Oximeter] 81 81 Respiratory Rate 16 16 Blood Pressure [Ri ght Arm] 130/85 Pulse Oximetry 91 Oxygen Delivery Me thod Room Air Oxygen Flow Rate 0 Labs/Imaging Labs Labs: White blood cell count within normal limits Electrolytes within normal limits Imaging Imaging: Abdominal x-ray shows contrast in right colon. Still some dilatation of small-bowel loops. Progress Note: A&P Assessment and plan (1) Small bowel obstruction: Status: Acute Plan The patient is a 56-year-old male with de Mac small bowel obstruction. Overall he is doing well. He has had passage of contrast into the colon which is great news. I told him that I a.m. still a bit concerned about the dilated small bowel however it can take time for this to completely resolve. I recommend continuing the NG tube to gravity as well as advancing his diet very slowly. He should be made NPO at midnight just in case he fails to progress and we decide to proceed to the OR tomorrow (again we still do not know the cause of the obstruction at this time). If he develops nausea or vomiting his NG should be placed back to suction and he should be made NPO. He is otherwise healthy and is ambulating however I will discuss with the hospitalist about Lovenox.
--- NOTE | 2022-01-20 12:28 | P.IMPN_ITS ---
Progress Note: A&P Assessment and plan (1) Small bowel obstruction: Status: Acute Assessment and Plan: Primary management per general surgery. No concerns from hospitalist team, will continue to follow. (2) Insomnia: Status: Chronic Assessment and Plan: Restart home mirtazapine dosing. Plan 56-year-old male admitted for SBO, primary management per General surgery. Will initiate Lovenox today for prophylaxis. Time Spent With Patient Total time spent: 15 Subjective Date Seen: 01/20/22 Interval history: Patient starting to pass gas, reassuring XR this morning. Would like to restart home Mirtazapine for sleep tonight. No other concerns for hospitalist team. Exam Const: Vital Signs, click to edit/add: Vital Signs - 24 hr 01/19/22 16:22 01/19/22 16:34 01/19/22 16:00 Temperature 98.2 F 98.2 F Pulse Rate [Left P ulse Oximeter] 78 78 78 Respiratory Rate 16 16 16 Blood Pressure [Ri ght Arm] 135/89 135/89 135/89 Pulse Oximetry 93 93 93 Oxygen Delivery Me thod Room Air Room Air Room Air Oxygen Flow Rate 0 0 01/19/22 15:00 01/19/22 20:00 01/19/22 20:00 Temperature 98.3 F 98.3 F Pulse Rate [Left P ulse Oximeter] 78 85 85 Respiratory Rate 16 16 16 Blood Pressure [Ri ght Arm] 142/77 H 142/77 H Pulse Oximetry 92 92 Oxygen Delivery Me thod Room Air Room Air Oxygen Flow Rate 0 01/20/22 00:00 01/20/22 00:00 01/20/22 04:00 Temperature 98.4 F 98.4 F 98.6 F Pulse Rate [Left P ulse Oximeter] 86 86 86 Respiratory Rate 16 16 18 Blood Pressure [Ri ght Arm] 134/77 134/77 131/78 Pulse Oximetry 92 92 91 Oxygen Delivery Me thod Room Air Room Air Room Air Oxygen Flow Rate 0 01/20/22 04:00 01/20/22 07:43 01/20/22 07:43 Temperature 98.6 F 98.2 F Pulse Rate [Left P ulse Oximeter] 86 81 81 Respiratory Rate 18 16 16 Blood Pressure [Ri ght Arm] 131/78 130/85 Pulse Oximetry 91 91 Oxygen Delivery Me thod Room Air Room Air Oxygen Flow Rate 0 Labs Labs: Laboratory Results - last 24 hr 01/20/22 01/20/22 05:56 05:56 WBC 8.32 RBC 4.84 Hgb 15.6 Hct 47.0 MCV 97 MCH 32 MCHC 33 RDW Coeff of [place] 11.5 Plt Count 260 Neut % (Auto) 71.8 Lymph % (Auto) 13.9 L [place] % (Auto) 11.1 H Eos % (Auto) 2.2 Baso % (Auto) 0.5 Neut # (Auto) 5.98 Lymph # (Auto) 1.20 [place] # (Auto) 0.90 Eos # (Auto) 0.18 Baso # (Auto) 0.04 Abs Immat Gran (auto) 0.04 Sodium 139 Potassium 3.9 Chloride 105 Carbon Dioxide 26 BUN 24 Creatinine 0.7 Estimated Creat Clear 127.79 Estimated GFR 107 Glucose 96 Calcium 8.5
[2022-01-20] MEDS: ENOXAPARIN 40 MG/0.4 ML INJ SUBCUT (13:55)
--- NOTE | 2022-01-20 18:26 | PC.NURSE ---
: Pt. up indep. in room and halls this shift. Bowel sounds hypoactive x4, denied nausea/pain/other issues entire shift. Denied flatus until 1800, when pt. reported small, loose bowel movement, with a plug of stool. NG in right nare to 53cm, sticker replaced today. IVF running NS @ 125/hr. NG currently draining to gravity, w/no output this shift. Updated MD; no new orders. IV replaced left forearm d/t IV leaking in right AC earlier today. RN attempted to replace x3, then supervisor tank house able to obtain access. Good urine output.
[2022-01-20] MEDS: MIRTAZAPINE 15 MG TABLET 7.5 MG PO (21:23)
[2022-01-21] VITALS (23 sets, daily range): BP systolic 121–148; BP diastolic 73–86; PULSE 61–79; RESP 14–18; TEMP 36.6–36.9; O2SAT 88–98
[2022-01-21] MEDS: 0.9 % SODIUM CHLORIDE 1000 ml 1,000 ML 125 ML IV ×2 (04:54→14:31)
[2022-01-21] MEDS: SIMETHICONE 80 MG TAB.CHEW 160 MG PO ×2 (04:56→09:18)
--- NOTE | 2022-01-21 06:28 | PC.NURSE ---
Shift Note -: Pt pleasant and cooperative, VSS with continued elevated BP as recorded on previous shifts, afebrile. Pt up ad keiko in room and encouraged to walk in the [place]. Pt tolerated clear liquid diet, but c/o of fullness in his center upper gastric area after consuming 2 cups of broth and a juice. Pt reported no flatus since the BM earlier in the day. Zero gastric output observed by 2300, NG tube flushed with 40mL of tap water then connected to L/I suction with 100mL gastric output observed @ 0300 check. Pt c/o continued fullness and requested something for acid reflux. Simethicone tabs administered with relief. Pt returned to gravity drain and able to sleep again. Pt has been NPO since midnight with the exception of Simethicone chew tabs as per Dr. Jasso's dictation for surgical intervention possibility. CIWA scores have continued to be 0. New PIV inserted @ 2230 into right wrist is patent and asymptomatic with NS running @ 125mL. See eMAR for medication administration.
--- NOTE | 2022-01-21 09:56 | XR_ITS ---
Final Report Patient: CLARA TREVIZO Facility:?[facility] Patient ID:?[id number] Site Patient ID:?[id number]. Site :?[id number] Study:?XRay Abdomen SUPINE-01/21/2022 10:14:54 AM Ordering Physician:Aman Amaya Final Report: INDICATION: Small-bowel obstruction TECHNIQUE: Abdomen 2 view. COMPARISON: Radiographs 01/20/2022, 01/19/2022, 01/18/[address] 01/18/2022 FINDINGS: Bowel: Increased gaseous distention of small bowel measuring up to 6 cm in diameter, previously 4 cm. Contrast is noted throughout the colon. Partial visualization of enteric tube. Soft tissues: No sign of free air. No sign of soft tissue mass. No suspicious calcifications. Vasectomy clips. Bones: Unremarkable for age. IMPRESSION: Increased gaseous distension of small bowel concerning for worsening obstruction. Dictated by Reid Heredia MD @ 01/21/2022 11:01:33 AM (Electronic Signature)
--- NOTE | 2022-01-21 11:02 | PM.GSPN ---
Subjective Subjective Date Seen: 01/21/22 Interval history: Jarod had 2 small bowel movements, however, last evening after a day of drainage to gravity and trying broth, he felt significantly worse regarding pain and distension. He was placed back to suction. He feels that his pain is worse today than yesterday. Exam Narrative: Exam Narrative: General: No acute distress HEENT: NG in place with minimal output CV: Regular rate and rhythm Respiratory: Breathing nonlabored on room Abdomen: Mildly distended and tender to palpation, especially in the left lower abdomen. Const: Vital Signs, click to edit/add: Vital Signs - 24 hr 01/20/22 15:55 01/20/22 15:55 01/20/22 19:00 Temperature 98.1 F 98.5 F Pulse Rate [Left P ulse Oximeter] 71 71 75 Respiratory Rate 16 16 14 Blood Pressure [Ri ght Arm] 131/81 145/87 H Pulse Oximetry 93 93 Oxygen Delivery Me thod Room Air Room Air Oxygen Flow Rate 0 0 01/20/22 23:57 01/20/22 23:57 01/20/22 23:00 Temperature 98.2 F 98.2 F Pulse Rate [Left P ulse Oximeter] 74 74 74 Respiratory Rate 14 16 16 Blood Pressure [Ri ght Arm] 145/90 H 145/90 H Pulse Oximetry 91 91 Oxygen Delivery Me thod Room Air Room Air Oxygen Flow Rate 0 0 01/21/22 03:00 01/21/22 08:15 01/21/22 08:15 Temperature 98.3 F 98.4 F Pulse Rate [Left P ulse Oximeter] 78 79 79 Respiratory Rate 16 18 18 Blood Pressure [Ri ght Arm] 140/84 H 144/83 H Pulse Oximetry 92 94 Oxygen Delivery Me thod Room Air Room Air Oxygen Flow Rate 0 Labs/Imaging Imaging Imaging: Abdominal x-ray obtained today shows worsening dilatation of small-bowel loops in the left abdomen. There is however continuing contrast in the colon. Progress Note: A&P Assessment and plan (1) Small bowel obstruction: Status: Acute Plan The patient is a 56-year-old male with an oval small-bowel obstruction. It seems as though this obstruction is partial since he did have passage of contrast after 48 hours, however he again has worsening dilatation of his small bowel. He also has having worsening pain today. Since this is adenoma obstruction and we still do not know the cause, I discussed with him and his about exploration. I think that it is warranted at this time since he is worsened after oral challenge. I explained that if we knew for sure that this was likely an adhesive obstruction then sometimes we will wait longer before proceeding to the OR, however because we do not know the etiology, I think it is duffy is to proceed with exploration. We discussed the risks, benefits and recovery from surgery. He understands that bowel resection may be required depending on the findings. We will plan on surgery today. We will obtain some labs preoperatively.
[2022-01-21 11:10] LABS: Basophils Absolute Auto 0.05 K/uL (0.00-0.30); Basophils Percent Auto 0.5 % (0.0-3.0); Eosinophils Absolute Auto 0.15 K/uL (0.00-0.50); Eosinophils Percent Auto 1.6 % (0.0-7.0); Hematocrit 42.6 % (37.0-53.0); Hemoglobin* 14.4 gm/dL (13.5-17.5); Immature Granulocytes Abs Auto 0.02 K/uL (0.00-0.30); Lymphocytes Percent Auto 11.8 % (20-44); Mean Corpuscular HGB Conc 34 gm/dL (32-36); Mean Corpuscular Hemoglobin 32 pg (26-34); Mean Corpuscular Volume 96 fL (80-100); Monocytes Percent Auto 10.1 % (0.0-11.0); Neutrophils Percent Auto 75.8 % (42.0-72.0); Platelet Count* 227 K/uL (140-440); RDW Coefficient of Variation % 11.5 % (11.5-15.5); Red Blood Count 4.46 m/uL (4.30-5.90); White Blood Count* 9.25 K/uL (4.50-11.00)
--- NOTE | 2022-01-21 11:27 | PM.GSPRC ---
Operative Note Date of procedure: 01/21/22 Type of Procedure: 1. Exploratory laparotomy 2. Lysis of adhesions Procedure Description: After discussing the risks and benefits of the procedure, the patient signed informed consent.? The operative site was marked and the patient was brought to the operating room and placed on the operating table in supine position.? Care was taken to pad the patient's pressure points.?? The patient was then intubated by anesthesia.?? The operative site was then prepped and draped in the usual sterile fashion.? A time-out was then performed. The midline abdominal incision was made about the umbilicus. Dissection was carried down to the subcutaneous tissue using cautery. The fascia was incised with cautery. The fascia was then grasped between 2 Rk clamps and Metzenbaum scissors was used to incise the peritoneum. The fascia and peritoneum were then opened along the length of the incision. There was serous ascites within the abdomen. The small bowel distally was decompressed. I lifted up the omentum and began to evaluate the bowel. Immediately I encountered an adhesion which divided with finger fracture. I then began running the bowel toward the ligament of Treitz. EN route I encountered another adhesive band from the mesentery across the small bowel. I divided this with cautery. Once I reached ligament Treitz I then ran the bowel distally toward the terminal ileum. The proximal bowel was dilated however there was no ischemia. The distal bowel was decompressed and healthy appearing the 2 areas where the obstruction was present were visible. There was no stricture noted. No serosal tears were noted. There were no masses within the small bowel or mesentery noted. The ascitic fluid was then suctioned from the abdomen. The fascia was then closed with looped 0 Maxon in a running fashion. The dermis was closed with 3 0 Vicryl suture. The skin was then closed with 4 0 Monocryl running subcuticular sutures. Sterile dressings were then applied. ? The patient was then woken and transported to the recovery area in stable condition. ? The patient tolerated the procedure well. Findings: Small-bowel obstruction secondary to adhesive band, possible closed loop. Bowel appeared viable. No masses. Anesthesia: GETA Surgeon: Shana Jasso MD Estimated blood loss (mL): 5 Condition: stable Disposition: PACU
[2022-01-21] MEDS: PIPERACILLIN/TAZOBACTAM 3.375 GM in 0.9 % SODIUM CHLORIDE Mini-bag 100 ML IVPB (11:45)
[2022-01-21 11:54] LABS: Slide Review Reflex No
[2022-01-21 11:59] LABS: Chloride* 105 mmol/L (96-114); Sodium* 138 mmol/L (135-149)
[2022-01-21 12:00] LABS: Potassium* 3.7 mmol/L (3.6-5.1)
[2022-01-21 12:02] LABS: Carbon Dioxide* 24 mmol/L (20-32); Creatinine* 0.6 mg/dL (0.5-1.5); Est. Creatinine Clearance* 149.09; Estimated Glomerular Filt Rate 113 ml/min
[2022-01-21 12:03] LABS: Blood Urea Nitrogen* 13 mg/dL (7-30); Calcium* 8.5 mg/dL (8.4-10.6); Glucose* 89 mg/dL (60-115)
[2022-01-21] MEDS: LACTATED RINGERS 1000 ML IV (12:09)
--- NOTE | 2022-01-21 12:21 | W.PM.NB ---
Nerve Block Nerve Block Time Seen by Provider: 11:45 Date Seen: 01/21/22 Type of block requested by surgeon for post-operative analgesia: TAP Side: bilateral Time out performed: Yes Verification of patient name: Yes Verification of date of : Yes Site marking: not applicable Name of person performing procedure: Erick Archer CRNA Continuous monitoring Was continuous monitoring of O2 sat, B/P, manager cardiac cath, recorded every 15 minutes?: Yes Procedure Checklist: sterile prep, needles and gloves Ultrasound guided. Images saved: Yes Medications given in 5ml increments after negative aspiration: Marcaine and Exparel Patient tolerated procedure well: Yes Block Charges Block Charge (with Pro Fee): TAP Bilateral Use of Ultrasound Machine for Block: Yes- US Guidance/pain block
--- NOTE | 2022-01-21 12:22 | SUR.OPER ---
PATIENT QUESTIONS ANSWERED SATISFACTORILY PREOPERATIVELY. PATIENT BROUGHT TO OR #4 PER MED/SURG BED. Patient positioned supine on OR #4 bed.? Perioperative team supported bilateral arms on arm boards. Final approval of positioning by surgeon.
--- NOTE | 2022-01-21 12:30 | SUR.OPER ---
pt. family updated by phone call at [phone].
--- NOTE | 2022-01-21 12:59 | P.IMPN_ITS ---
Progress Note: A&P Assessment and plan (1) Small bowel obstruction: Status: Acute Assessment and Plan: I reviewed my impression with the patient, his , and his general surgeon. Agree with intent of bringing patient to the OR for exploratory laparoscopy. Continue with IV fluids, analgesics, antiemetics p.r.n.. Continue with NG tube suctioning for now. (2) Alcohol use: Problem details: Pt has up to three alcoholic beverages per day. Status: Chronic Assessment and Plan: No evidence of alcohol withdrawal at this time. Continue to monitor. (3) MANUEL (obstructive sleep apnea): Status: Chronic Assessment and Plan: Continue to monitor and support. (4) Insomnia: Status: Chronic Assessment and Plan: Continue to support. Plan Answered patient's and 's questions to their satisfaction. They are agreeable with above stated plans and recommendations at this juncture. Time Spent With Patient Total time spent: 30 minutes Subjective Time Seen by Provider: 09:00 Date Seen: 01/21/22 Interval history: 56-year-old man with [place] small-bowel obstruction, no obvious apparent etiology, and still not resolved despite conservative interventions. Perhaps was feeling better yesterday until he tried clear liquids and then has had increased abdominal discomfort since. Acknowledges 2 small bowel movements overnight but not passing flatus. Back on nasogastric suctioning. Denies nausea vomiting. Tolerating walking through the hallways. Denies chest heaviness, pressure, tightness, or pain. Denies syncope or near- syncope. Denies palpitations. Denies dyspnea at rest or paroxysmal nocturnal dyspnea or orthopnea. Denies dyspnea with exertion. Exam Narrative: Exam Narrative: Alert, oriented to self, place, time, situation. Articulate. Thoughtful. Cooperative. Friendly. Mood and affect are congruent. Lungs are clear to auscultation. Heart tones with regular rhythm. Abdomen with occasional bowel sounds, mildly distended, subjectively uncomfortable to palpation in suprapubic area. Extremities without edema. Palpable pulses upper and lower extremities. Independent in transfer, station, and gait. No tremor, asterixis, or ataxia. Cranial nerves 3-12 grossly intact. Skin is warm, dry, intact. No petechiae, rashes, or cyanosis. Const: Vital Signs, click to edit/add: Vital Signs - 24 hr 01/20/22 15:55 01/20/22 15:55 01/20/22 19:00 Temperature 98.1 F 98.5 F Pulse Rate [Left P ulse Oximeter] 71 71 75 Respiratory Rate 16 16 14 Blood Pressure [Ri ght Arm] 131/81 145/87 H Pulse Oximetry 93 93 Oxygen Delivery Me thod Room Air Room Air Oxygen Flow Rate 0 0 01/20/22 23:57 01/20/22 23:57 01/20/22 23:00 Temperature 98.2 F 98.2 F Pulse Rate [Left P ulse Oximeter] 74 74 74 Respiratory Rate 14 16 16 Blood Pressure [Ri ght Arm] 145/90 H 145/90 H Pulse Oximetry 91 91 Oxygen Delivery Me thod Room Air Room Air Oxygen Flow Rate 0 0 01/21/22 03:00 01/21/22 08:15 01/21/22 08:15 Temperature 98.3 F 98.4 F Pulse Rate [Left P ulse Oximeter] 78 79 79 Respiratory Rate 16 18 18 Blood Pressure [Ri ght Arm] 140/84 H 144/83 H Pulse Oximetry 92 94 Oxygen Delivery Me thod Room Air Room Air Oxygen Flow Rate 0 Labs Labs: Laboratory Results - last 24 hr 01/21/22 01/21/22 11:05 11:05 WBC 9.25 RBC 4.46 Hgb 14.4 Hct 42.6 MCV 96 MCH 32 MCHC 34 RDW Coeff of [place] 11.5 Plt Count 227 Neut % (Auto) 75.8 H Lymph % (Auto) 11.8 L Richardson % (Auto) 10.1 Eos % (Auto) 1.6 Baso % (Auto) 0.5 Neut # (Auto) 7.00 Lymph # (Auto) 1.10 Richardson # (Auto) 0.90 Eos # (Auto) 0.15 Baso # (Auto) 0.05 Abs Immat Gran (auto) 0.02 Sodium 138 Potassium 3.7 Chloride 105 Carbon Dioxide 24 BUN 13 Creatinine 0.6 Estimated Creat Clear 149.09 Estimated GFR 113 Glucose 89 Calcium 8.5 Imaging Abdominal x-ray: Attestation: I have reviewed the pertinent imaging results. Radiologist's impression: My interpretation of the results is that the small bowel dilatation is worse today than yesterday. Does have oral contrast in the colon still.
--- NOTE | 2022-01-21 13:08 | W.ANESCHARGE ---
Anesthesia Charges Start Date/Time Anesthesia Start Date: 01/21/22 Anesthesia Start Time: 11:39 Stop Date/Time Anesthesia Stop Date: 01/21/22 Anesthesia Stop Time: 13:07 Summary Emergency: Yes
[2022-01-21] MEDS: fentaNYL 100 MCG/2 ML inj 50 MCG IVP ×2 (13:20→13:25)
--- NOTE | 2022-01-21 13:32 | SUR.PHASEI ---
D) PT. C/O PAIN - 10/04 I) FENTANYL - SEE EMAR A) PT. STATES PAIN IS BETTER - -07/07. P) CONTINUE TO MONITOR PT. COMFORT LEVEL AND TREAT PER ORDERS.
--- NOTE | 2022-01-21 13:42 | SUR.PHASEI ---
VSS, TRANSFER PT. TO M/S VIA BED.
[2022-01-21] MEDS: MORPHINE 2 MG/ML inj IVP (14:15)
[2022-01-21] MEDS: SODIUM CHLORIDE 0.9 % (FLUSH) 10 ML SYRINGE IVF (14:15)
[2022-01-21] MEDS: HYDROmorphone 0.5 mg/0.5 ml inj IVP ×3 (15:38→23:15)
[2022-01-21] MEDS: LACTATED RINGERS 1000 ML 1,000 ML 125 ML IV ×2 (15:54→23:22)
--- NOTE | 2022-01-21 17:37 | XR_ITS ---
Final Report Patient: CLARA TREVIZO Facility:?[facility] Patient ID:?[id number] Site Patient ID:?[id number]. Site :?[id number] Study:?XRay Abdomen 1 VIEW-01/21/2022 5:58:56 PM Ordering Physician:Ankit Saldana Final Report: INDICATION: NG tube placement TECHNIQUE: Abdomen 1 view. COMPARISON: Radiograph 01/21/2022 FINDINGS: Bowel: Enteric tube is been advanced with the tip and side hole under the left hemidiaphragm, likely in the stomach. Contrast media throughout the colon. Persistent gas-filled dilated loops of small bowel. Soft tissues: No sign of free air. No sign of soft tissue mass. No suspicious calcifications. Bones: Unremarkable for age. IMPRESSION: Enteric tube with tip and side hole in the stomach. Persistent gas-filled loops of small bowel suggest ongoing obstruction. Dictated by Reid Heredia MD @ 01/21/2022 6:02:56 PM (Electronic Signature)
[2022-01-21] MEDS: KETOROLAC 15 MG/ML inj IVP ×2 (17:47→23:19)
--- NOTE | 2022-01-21 20:00 | PC.NURSE ---
: Pt. up indep. in halls and room. Surgery this morning just before noon, returned to floor at 1400. Frequent vitals stable, afebrile. Dressing to midline abdomen C/D/I. Pain controlled from PRN meds. Urinated 725 cc since surgery. Educated on log rolling, bracing and deep breathing, patient compliant. at bedside this shift. Pt. returned w/NG tub at 51 inches, vs. leaving at 53 inches, which placement was verified this morning. Updated Dr. Jasso after attempting to advance by another RN. Xray obtained, verified placement. Currently at 63 inches; adequate placement per Dr. Jasso. NG to LIS at this time, minimal output. TEDS/SCDs in use. Continues to be NPO.
[2022-01-21] MEDS: MIRTAZAPINE 15 MG TABLET 7.5 MG PO (20:23)
[2022-01-22] VITALS (7 sets, daily range): BP systolic 131–156; BP diastolic 78–88; PULSE 67–79; RESP 16; TEMP 36.6–36.8; O2SAT 92–97
[2022-01-22] MEDS: HYDROmorphone 0.5 mg/0.5 ml inj IVP ×6 (04:43→20:38)
[2022-01-22] MEDS: KETOROLAC 15 MG/ML inj IVP ×3 (04:50→17:34)
--- NOTE | 2022-01-22 04:58 | PC.NURSE ---
Shift Note -: Pt pleasant and cooperative, VSS, afebrile, up in room ad keiko. NG tube in place to 63cm, to L/I suction with zero output into canister, minimal in tubing, nose pad replaced. BS absent, Pt satisfied with pain control regimen with Dilaudid 0.5mg Q2 and Toradol 15mg Q6. Pt has remained NPO per surgeon's note.
[2022-01-22 07:11] LABS: Hematocrit 40.2 % (37.0-53.0); Hemoglobin* 13.7 gm/dL (13.5-17.5); Mean Corpuscular HGB Conc 34 gm/dL (32-36); Mean Corpuscular Hemoglobin 32 pg (26-34); Mean Corpuscular Volume 95 fL (80-100); Platelet Count* 244 K/uL (140-440); Red Blood Count 4.23 m/uL (4.30-5.90); White Blood Count* 9.02 K/uL (4.50-11.00)
[2022-01-22 07:17] LABS: Slide Review Reflex No
[2022-01-22 07:29] LABS: Chloride* 104 mmol/L (96-114); Potassium* 3.7 mmol/L (3.6-5.1); Sodium* 135 mmol/L (135-149)
[2022-01-22 07:32] LABS: Carbon Dioxide* 25 mmol/L (20-32); Creatinine* 0.7 mg/dL (0.5-1.5); Est. Creatinine Clearance* 127.79; Estimated Glomerular Filt Rate 107 ml/min
[2022-01-22 07:33] LABS: Blood Urea Nitrogen* 13 mg/dL (7-30); Glucose* 81 mg/dL (60-115)
[2022-01-22] MEDS: LACTATED RINGERS 1000 ML 1,000 ML 125 ML IV ×2 (08:44→18:23)
--- NOTE | 2022-01-22 09:09 | PM.GSPN ---
Subjective Subjective Date Seen: 01/22/22 Interval history: The patient is a 56-year-old male who is postop day 1 status post ex lap and lysis of adhesions for bowel obstruction. He is doing well overall. He is having some postoperative pain but has no nausea. Not moving his bowels. Exam Narrative: Exam Narrative: General: No acute distress NG in place without significant output CV: Regular rate and rhythm Respiratory: Clear to auscultation bilaterally Abdomen: Mildly distended and appropriately tender for the postoperative state. Dressing is clean and dry intact. Positive bowel sounds. Extremities: No pedal edema Const: Vital Signs, click to edit/add: Vital Signs - 24 hr 01/21/22 13:02 01/21/22 13:20 01/21/22 13:30 Temperature 98.2 F 98.1 F Pulse Rate 65 67 62 Pulse Rate [Left P ulse Oximeter] Respiratory Rate 16 14 14 Blood Pressure 148/86 H 139/76 134/79 Blood Pressure [Ri ght Arm] Pulse Oximetry 94 95 97 Oxygen Delivery Me thod OxyMask Room Air OxyMask Oxygen Flow Rate 10 10 01/21/22 13:45 01/21/22 13:05 01/21/22 13:10 Temperature 98.1 F Pulse Rate 69 62 63 Pulse Rate [Left P ulse Oximeter] Respiratory Rate 16 18 14 Blood Pressure 134/80 147/84 H 145/79 H Blood Pressure [Ri ght Arm] Pulse Oximetry 95 96 98 Oxygen Delivery Me thod Room Air Blow By OxyMask OxyMask Oxygen Flow Rate 10 10 01/21/22 13:15 01/21/22 13:25 01/21/22 13:35 Temperature 98.3 F Pulse Rate 63 68 61 Pulse Rate [Left P ulse Oximeter] Respiratory Rate 18 14 14 Blood Pressure 140/80 H 133/78 131/77 Blood Pressure [Ri ght Arm] Pulse Oximetry 98 94 97 Oxygen Delivery Me thod OxyMask OxyMask Blow By OxyMask Oxygen Flow Rate 6 10 10 01/21/22 13:40 01/21/22 14:00 01/21/22 14:00 Temperature Pulse Rate 62 72 Pulse Rate [Left P ulse Oximeter] 75 Respiratory Rate 14 16 16 Blood Pressure 131/76 Blood Pressure [Ri ght Arm] 136/81 131/78 Pulse Oximetry 95 90 Oxygen Delivery Me thod Blow By Room Air Room Air Oxygen Flow Rate 10 01/21/22 14:15 01/21/22 14:30 01/21/22 15:00 Temperature 98 F Pulse Rate Pulse Rate [Left P ulse Oximeter] 72 66 74 Respiratory Rate 16 16 Blood Pressure Blood Pressure [Ri ght Arm] 127/74 131/74 132/74 Pulse Oximetry 88 92 92 Oxygen Delivery Me thod Room Air OxyMask OxyMask Oxygen Flow Rate 1 1 01/21/22 15:30 01/21/22 16:00 01/21/22 17:00 Temperature Pulse Rate Pulse Rate [Left P ulse Oximeter] 76 77 74 Respiratory Rate 16 16 15 Blood Pressure Blood Pressure [Ri ght Arm] 125/73 129/74 126/75 Pulse Oximetry 92 93 93 Oxygen Delivery Me thod OxyMask OxyMask OxyMask Oxygen Flow Rate 1 1 1 01/21/22 18:00 01/21/22 19:00 01/21/22 22:43 Temperature 97.8 F Pulse Rate Pulse Rate [Left P ulse Oximeter] 75 69 72 Respiratory Rate 16 16 16 Blood Pressure Blood Pressure [Ri ght Arm] 132/78 130/75 121/73 Pulse Oximetry 92 92 92 Oxygen Delivery Me thod OxyMask OxyMask OxyMask Oxygen Flow Rate 1 1 01/21/22 23:00 01/21/22 23:00 01/22/22 03:00 Temperature 97.8 F 98.0 F Pulse Rate Pulse Rate [Left P ulse Oximeter] 72 76 76 Respiratory Rate 16 16 16 Blood Pressure Blood Pressure [Ri ght Arm] 121/73 131/78 Pulse Oximetry 92 92 Oxygen Delivery Me thod Room Air Room Air Oxygen Flow Rate Labs/Imaging Labs Labs: Labs within normal limits today. Imaging Imaging: Abdominal x-ray from last night because of concern for NG displacement shows NG in the stomach. Persistently dilated loops of small bowel consistent with postoperative state. Progress Note: A&P Assessment and plan (1) Small bowel obstruction: Status: Acute (2) S/P exploratory laparotomy: Status: Acute Plan The patient is a 56-year-old male now postop day 1 status post exploratory laparotomy and lysis of adhesions for small-bowel obstruction. Overall he is progressing appropriately. We discussed the risks/benefits of NG removal. It has not put much out any does have positive bowel sounds, however I do expect a significant ileus postoperatively. He understands that he may feel more distended and uncomfortable if we remove it, however without prolonged ileus likely it would not need to be replaced. He is going to go very slowly with his oral intake and only takes sips of ice chips etc. for comfort. -DC NG today -encourage IS and ambulation -continue NPO except for sips and chips/IV fluids -Lovenox for DVT prophylaxis.
[2022-01-22] MEDS: ENOXAPARIN 40 MG/0.4 ML INJ SUBCUT (13:03)
--- NOTE | 2022-01-22 13:58 | PC.NURSE ---
Addendum entered by Violetta Chang RN 01/22/22 19:23: Addendum: Right wrist IV infiltrated as RN about to give pain meds. Attempted to start, unable to gain IV access. Requested warehouse order picker attempt. She placed a 20g in R hand on 4th attempt. Total of 5 attempts. IVF restarted after pain meds given. Alternating between aqua K pad and ice packs. Original Note: Updated Dr. Jasso re: pain consistently 5/10 2 hrs. after pain meds (initially does decrease to 2/10). Given Toradol x1, Dilaudid x3 this shift. No new orders from MD. Alternating heat/ice, walking, repositioning and rest. No flatus yet, few small belches. NG removed, pt. much happier. Denies need for antiemetics w/short-lived nausea after IV pain meds. Using IS indep. to 2500cc. Abdominal dressing clean and dry, small spot of drainage circled/dated.
--- NOTE | 2022-01-22 20:25 | PC.NURSE ---
Left VM for Sharlene patient advocate, to meet with patient at earliest convenience per patient request.
[2022-01-22] MEDS: MIRTAZAPINE 15 MG TABLET 7.5 MG PO (21:46)
[2022-01-22] MEDS: HYDROCODONE-ACETAMIN 5-325 MG 1 TAB PO (21:46)
[2022-01-23] MEDS: HYDROCODONE-ACETAMIN 5-325 MG 1 TAB PO ×5 (02:22→22:37)
[2022-01-23] MEDS: LACTATED RINGERS 1000 ML 1,000 ML 125 ML IV (02:23)
[2022-01-23 02:59] VITALS: BP 143/88; PULSE 77; RESP 16; TEMP 36.7; O2SAT 97
--- NOTE | 2022-01-23 05:59 | PC.NURSE ---
Shift Note -: Pt pleasant and cooperative, VSS, afebrile, PIV in left hand patent and asymptomatic with maintenance fluids running. Pt reports no gas and no BM, BS hypoactive. Abd tender, dressing CDI. Pt is requesting abd binder for support while up and walking, will pass along to oncoming nurse to request order from surgeon. Pt tolerating sips of juice and PO meds well rating pain 4-5/10 pre-medication reduced to 2/10 post medication, denies nausea. Pt able to rest well overnight. See eMAR for medication administration.
[2022-01-23 07:00] VITALS: BP 131/81; PULSE 67; RESP 12; TEMP 36.8; O2SAT 93
--- NOTE | 2022-01-23 08:36 | PM.GSPN ---
Subjective Subjective Date Seen: 01/23/22 Interval history: Taught is doing well today. NG tube removed without nausea. He is having significant urine output. Still having some abdominal pain which is 5/10. Not passing any gas. Exam Narrative: Exam Narrative: No acute distress CV: Regular rate and rhythm Respiratory: Breathing nonlabored on room air Abdomen: Mildly distended. Appropriate for the postoperative state. There is ecchymosis about the incision. There is a small amount of erythema noted this is very faint. Const: Vital Signs, click to edit/add: Vital Signs - 24 hr 01/22/22 10:44 01/22/22 14:40 01/22/22 15:00 Temperature 98 F 97.9 F Pulse Rate [Left P ulse Oximeter] 68 68 68 Respiratory Rate 16 16 16 Blood Pressure [Ri ght Arm] 135/84 136/83 Pulse Oximetry 93 92 Oxygen Delivery Me thod Room Air Room Air 01/22/22 19:30 01/22/22 23:00 01/22/22 23:00 Temperature 98.0 F 98.0 F Pulse Rate [Left P ulse Oximeter] 70 67 67 Respiratory Rate 16 16 16 Blood Pressure [Ri ght Arm] 156/88 H 144/88 H Pulse Oximetry 97 97 Oxygen Delivery Me thod Room Air Room Air 01/23/22 02:59 Temperature 98.0 F Pulse Rate [Left P ulse Oximeter] 77 Respiratory Rate 16 Blood Pressure [Ri ght Arm] 143/88 H Pulse Oximetry 97 Oxygen Delivery Me thod Room Air Progress Note: A&P Assessment and plan (1) S/P exploratory laparotomy: Status: Acute Assessment and Plan: The patient is a 56-year-old male postop day 2 status post ex lap for small bowel obstruction due to adhesions. He is doing well overall. He seems as though he may have started to mobilize some of his fluids. I will turn down his IV fluids today. He has been ambulating and doing IS which I encouraged him to continue. -he may have sips of liquids but I would hold off on advancing diet until he is passing gas. There is some very faint erythema and bruising around the incision. I will start Keflex as portion of the erythema is blanchable. Continue Lovenox for DVT prophylaxis
[2022-01-23] MEDS: CEFAZOLIN 2 GM in 0.9 % SODIUM CHLORIDE Mini-bag 100 ML IVPB ×2 (09:46→17:04)
[2022-01-23 11:00] VITALS: BP 140/84; PULSE 73; RESP 15; O2SAT 94
[2022-01-23] MEDS: ENOXAPARIN 40 MG/0.4 ML INJ SUBCUT (12:13)
[2022-01-23 15:00] VITALS: BP 137/86; PULSE 67; RESP 18; TEMP 37; O2SAT 95
--- NOTE | 2022-01-23 15:50 | PC.NURSE ---
Shift [id number] pt this shift tolerating ice and chips. per MD lombardo, able to have juice and popsicle as tolerated. Walking halls independently, per pt passing small amounts of gas. IV fluids decreased d/t excessive amounts of urine output. Dressing CDI. Pain treated with [place], see eMAR.
[2022-01-23 19:00] VITALS: BP 136/86; PULSE 67; RESP 18; TEMP 36.8; O2SAT 96
[2022-01-23] MEDS: MIRTAZAPINE 15 MG TABLET 7.5 MG PO (22:38)
[2022-01-23] MEDS: LACTATED RINGERS 1000 ML 1,000 ML 75 ML IV (22:40)
[2022-01-23 23:00] VITALS: BP 143/71; PULSE 63; RESP 16; TEMP 36.8; O2SAT 92
[2022-01-24] VITALS (7 sets, daily range): BP systolic 127–147; BP diastolic 85–100; PULSE 60–68; RESP 12–20; TEMP 36.4–36.9; O2SAT 92–96
[2022-01-24] MEDS: CEFAZOLIN 2 GM in 0.9 % SODIUM CHLORIDE Mini-bag 100 ML IVPB ×2 (00:55→08:54)
[2022-01-24] MEDS: HYDROCODONE-ACETAMIN 5-325 MG 1 TAB PO ×5 (05:18→23:57)
--- NOTE | 2022-01-24 05:38 | PC.NURSE ---
Shift Note -: Pt pleasant and cooperative, VSS, afebrile, pain well controlled with [place] 1-2 tabs. LS clear, BS hypoactive, Pt states he has passed a small amount of flatus. Pt has had large amount of urinary output consistently over the last several shifts, stating that he has been up nearly hourly to urinate. Dr. Chapin called to request SL for Pt comfort and restful night, no new orders given. Pt education provided on walking frequently to encourage return of bowel function. See eMAR for medication administration.
[2022-01-24 06:58] LABS: Chloride* 102 mmol/L (96-114)
[2022-01-24 06:59] LABS: Basophils Absolute Auto 0.05 K/uL (0.00-0.30); Basophils Percent Auto 0.9 % (0.0-3.0); Eosinophils Absolute Auto 0.38 K/uL (0.00-0.50); Eosinophils Percent Auto 6.7 % (0.0-7.0); Hematocrit 41.1 % (37.0-53.0); Hemoglobin* 14.3 gm/dL (13.5-17.5); Immature Granulocytes Abs Auto 0.01 K/uL (0.00-0.30); Lymphocytes Percent Auto 18.3 % (20-44); Mean Corpuscular HGB Conc 35 gm/dL (32-36); Mean Corpuscular Hemoglobin 32 pg (26-34); Mean Corpuscular Volume 93 fL (80-100); Neutrophils Absolute Auto 3.51 K/uL (1.7-7.0); Neutrophils Percent Auto 61.9 % (42.0-72.0); Platelet Count* 260 K/uL (140-440); Potassium* 3.2 mmol/L (3.6-5.1); RDW Coefficient of Variation % 11.6 % (11.5-15.5); Red Blood Count 4.41 m/uL (4.30-5.90); Sodium* 140 mmol/L (135-149); White Blood Count* 5.67 K/uL (4.50-11.00)
[2022-01-24 07:01] LABS: Creatinine* 0.6 mg/dL (0.5-1.5); Est. Creatinine Clearance* 149.09; Estimated Glomerular Filt Rate 113 ml/min; Slide Review Reflex No
[2022-01-24 07:02] LABS: Blood Urea Nitrogen* 4 mg/dL (7-30); Calcium* 8.4 mg/dL (8.4-10.6); Carbon Dioxide* 28 mmol/L (20-32); Glucose* 99 mg/dL (60-115)
[2022-01-24] MEDS: ENOXAPARIN 40 MG/0.4 ML INJ SUBCUT (11:23)
--- NOTE | 2022-01-24 11:40 | P.GSPN_ITS ---
Subjective Subjective Date Seen: 01/24/22 Interval history: Jarod said he passed gas twice since surgery. No nausea. Had some popsicles overnight. Pain is somewhat better tolerated with the oral pain medications. He has been ambulating and using his IS. Exam Narrative: Exam Narrative: General: No acute distress CV: Regular rate and rhythm Respiratory: Clear bilaterally Abdomen: Mildly distended and soft. Ecchymosis about the incision. He does have a pinpoint rash on his abdomen anteriorly. Faint erythema at near the incision yesterday is noted to be gone today. Const: Vital Signs, click to edit/add: Vital Signs - 24 hr 01/23/22 15:00 01/23/22 15:00 01/23/22 19:00 Temperature 98.6 F 98.2 F Pulse Rate [Left P ulse Oximeter] 67 67 67 Respiratory Rate 18 18 18 Blood Pressure [Ri ght Arm] 137/86 136/86 Pulse Oximetry 95 96 Oxygen Delivery Me thod Room Air Room Air 01/23/22 23:00 01/23/22 23:00 01/24/22 03:00 Temperature 98.3 F Pulse Rate [Left P ulse Oximeter] 63 63 Respiratory Rate 16 16 16 Blood Pressure [Ri ght Arm] 143/71 H Pulse Oximetry 92 Oxygen Delivery Me thod Room Air 01/24/22 05:15 01/24/22 07:00 01/24/22 11:00 Temperature 98.3 F 98 F 98 F Pulse Rate [Left P ulse Oximeter] 66 62 63 Respiratory Rate 20 12 12 Blood Pressure [Ri ght Arm] 147/87 H 132/97 H 127/85 Pulse Oximetry 94 92 96 Oxygen Delivery Me thod Room Air Room Air Room Air Labs/Imaging Labs Labs: Hemoglobin, white blood cell normal Electrolytes normal except for mild hypokalemia. Progress Note: A&P Assessment and plan (1) Hypokalemia: Status: Acute (2) S/P exploratory laparotomy: Status: Acute (3) Ileus: Status: Acute Plan The patient is a 56-year-old male status post exploratory laparotomy and lysis of adhesions for bowel obstruction. He is still waiting for full return of bowel function. -okay to increase liquid intake, but holding off on tray since he is still somewhat distended and has only passed a small amount of gas -mild hypokalemia today. Will replace potassium IV since concern for ileus. -abdominal rash which may be secondary to the prep since it is not around the in cision and is on his abdomen in the area of his prep. However will hold Ancef today as well since there is no more erythema around the incision. -continue Lovenox for DVT prophylaxis. Some bruising around incision but is stable. -anticipate 1-2 more days inpatient. Okay to advance diet when he has more robust return of bowel function.
[2022-01-24] MEDS: LACTATED RINGERS 1000 ML 1,000 ML 75 ML IV (13:37)
[2022-01-24] MEDS: POTASSIUM CHLORIDE 10 MEQ/100 ML PIGGYBACK 100 MEQ IVPB ×2 (13:59→15:22)
--- NOTE | 2022-01-24 15:23 | PC.NURSE ---
shift [id number] pt this shift calm and cooperative. Took a shower independently. Seen walking the halls multiple times this shift. No BM but per pt, passing small amounts of gas. Tolerating a popsicle. Potassium at 3.1, treated with IV potassium chloride see eMAR. Pain treated with norco, see eMAR. IV running 75ml/hr, patent, asymptomatic.
[2022-01-24] MEDS: MIRTAZAPINE 15 MG TABLET 7.5 MG PO (22:01)
--- NOTE | 2022-01-24 22:34 | PC.NURSE ---
Shift Note [id number]: Pt friendly and cooperative. Independent and ambulating hallways frequently. VSS and LS COA. Surgical dressing C,D,&I, pt is using icepack PRN. Rates pain 4/10, 2 tabs [place] given PRN. Tolerating small amounts of clears, he did have a popsicle this evening and some ice chips. Abdomen soft and tender with active bowel sounds throughout. Pt verbalizes slight increase in flatus but no BM.
[2022-01-25] VITALS (8 sets, daily range): BP systolic 127–144; BP diastolic 91–99; PULSE 58–67; RESP 16–18; TEMP 36.6–36.7; O2SAT 92–97
[2022-01-25] MEDS: LACTATED RINGERS 1000 ML 1,000 ML 75 ML IV (02:13)
[2022-01-25] MEDS: HYDROCODONE-ACETAMIN 5-325 MG 1 TAB PO ×2 (04:06→15:24)
--- NOTE | 2022-01-25 07:00 | PC.NURSE ---
END OF SHIFT NOTE: PT PLEASANT AND COOPERATIVE. PT AMBULATES INDEPENDENTLY IN ROOM. VSS ON RA; AFEBRILE. PT RATES LOWER ABDOMINAL PAIN 2-4/10 WITH RELIEF FROM COLD PACK AND PRN [place]. MIDLINE LOWER ABDOMINAL INCISION CDI WITH STERI STRIPS, MODERATE AMOUNT OF BRUISING.?NPO (WITH 16OZ OF LIQUID PER SHIFT ALLOWED). LSCTA. ACTIVE BSx4. PT PASSING FLATUS.
[2022-01-25 07:14] LABS: Chloride* 103 mmol/L (96-114); Potassium* 3.2 mmol/L (3.6-5.1); Sodium* 139 mmol/L (135-149)
[2022-01-25 07:17] LABS: Carbon Dioxide* 28 mmol/L (20-32); Creatinine* 0.6 mg/dL (0.5-1.5); Est. Creatinine Clearance* 149.09; Estimated Glomerular Filt Rate 113 ml/min
[2022-01-25 07:18] LABS: Blood Urea Nitrogen* 6 mg/dL (7-30); Calcium* 8.4 mg/dL (8.4-10.6); Glucose* 116 mg/dL (60-115)
[2022-01-25] MEDS: 5 % DEX/0.9 SOD CHL+KCL 20 mEq 1,000 ML 75 ML IV ×2 (10:30→23:24)
[2022-01-25] MEDS: POTASSIUM CHLORIDE 10 MEQ/100 ML PIGGYBACK 100 MEQ IVPB ×2 (10:31→15:17)
[2022-01-25] MEDS: KETOROLAC 15 MG/ML inj IVP ×2 (10:54→17:15)
[2022-01-25] MEDS: POTASSIUM CHLORIDE 10 MEQ/100 ML PIGGYBACK 50 MEQ IVPB (12:40)
[2022-01-25] MEDS: ENOXAPARIN 40 MG/0.4 ML INJ SUBCUT (12:40)
--- NOTE | 2022-01-25 13:29 | PM.GSPN ---
Subjective Subjective Date Seen: 01/25/22 Interval history: Jarod is feeling fine today. No new complaints. He is trying to minimize his narcotic usage. Continues to pass a small amount of gas. No nausea. He is feeling somewhat itchy on his bilateral flanks but is otherwise unbothered by the rash that was noted yesterday. Exam Narrative: Exam Narrative: General: No acute distress CV: Regular rate Respiratory: Breathing nonlabored on room air Abdomen: Mildly distended, soft and minimally tender. Ecchymosis around the incision. There is no erythema. Still with some punctate rash, appears to be in area of surgical prep. Const: Vital Signs, click to edit/add: Vital Signs - 24 hr 01/24/22 15:00 01/24/22 15:00 01/24/22 19:00 Temperature 98.4 F 98.3 F Pulse Rate [Left P ulse Oximeter] 68 64 66 Respiratory Rate 18 18 18 Blood Pressure [Ri ght Arm] 130/100 H 139/93 H Pulse Oximetry 96 95 Oxygen Delivery Me thod Room Air Room Air 01/24/22 23:35 01/24/22 23:35 01/25/22 04:00 Temperature 97.6 F 97.8 F Pulse Rate [Left P ulse Oximeter] 60 60 58 L Respiratory Rate 18 18 16 Blood Pressure [Ri ght Arm] 133/88 127/99 H Pulse Oximetry 94 92 Oxygen Delivery Me thod Room Air Room Air 01/25/22 08:17 01/25/22 09:43 01/25/22 13:05 Temperature 97.9 F Pulse Rate [Left P ulse Oximeter] 65 65 64 Respiratory Rate 18 18 18 Blood Pressure [Ri ght Arm] 135/91 H 132/91 H Pulse Oximetry 96 96 Oxygen Delivery Me thod Room Air Room Air Labs/Imaging Labs Labs: Potassium is 3.2 Magnesium normal Progress Note: A&P Assessment and plan (1) Ileus: Status: Acute (2) Hypokalemia: Status: Acute (3) S/P exploratory laparotomy: Status: Acute (4) Rash: Status: Acute Plan The patient is a 56-year-old male status post exploratory laparotomy and lysis of adhesions for small-bowel obstruction. He is postop day 4 and has had some return of bowel function. Because he has no nausea and is abdomen is minimally distended, I have advanced his diet to a soft diet but instructed him to go slowly, especially if he is feeling pena nauseated. He understands that I would like him to have a bowel movement prior to discharge. That could be as soon as tomorrow. I reassured him that he is right on track for the postoperative state. -hypokalemia: Potassium replacement today. Recheck labs tomorrow -rash: I think this may be from the surgical prep. Today he is somewhat more itchy and therefore I have ordered hydrocortisone cream -continue Lovenox for DVT prophylaxis -encourage IS and ambulation
--- NOTE | 2022-01-25 18:50 | PC.NURSE ---
End of shift-- Pleasant and cooperative, alert and oriented patient. VSS and pt is afebrile. SPO2 maintained >90% on RA. Pain appears well managed with Toradol and [place]. 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 LS CTA. BS+ x4 and pt is passing small amounts of flatus. He tolerated small amounts of clear liquids this morning and ate a bowl of malt-o-meal this afternoon. Pt did state that it felt like a rock in his stomach and will back off again this evening. He ambulated in hallway independently and tolerated it very well. Report to oncoming shift.
[2022-01-25] MEDS: MIRTAZAPINE 15 MG TABLET 7.5 MG PO (21:03)
[2022-01-26 00:55] VITALS: BP 131/95; PULSE 64; RESP 18; TEMP 36.6; O2SAT 95
[2022-01-26 04:18] VITALS: BP 125/86; PULSE 67; RESP 18; TEMP 36.8; O2SAT 92
--- NOTE | 2022-01-26 06:53 | PC.NURSE ---
Alert and oriented x4. No new neuro changes noted. Vitals stable. afebrile. Denies pain. Hyperactive bowel sounds. BM x2 this shift. Ambulates self on the [address] independently. No concerns overnight
[2022-01-26 06:59] LABS: Chloride* 107 mmol/L (96-114); Potassium* 3.7 mmol/L (3.6-5.1); Sodium* 139 mmol/L (135-149)
[2022-01-26 07:00] VITALS: BP 126/91; PULSE 70; RESP 18; TEMP 36.6; O2SAT 92
[2022-01-26 07:01] LABS: Creatinine* 0.6 mg/dL (0.5-1.5); Est. Creatinine Clearance* 149.09; Estimated Glomerular Filt Rate 113 ml/min
[2022-01-26 07:02] LABS: Blood Urea Nitrogen* 6 mg/dL (7-30); Calcium* 8.5 mg/dL (8.4-10.6); Carbon Dioxide* 24 mmol/L (20-32); Glucose* 114 mg/dL (60-115)
--- NOTE | 2022-01-26 09:56 | PC.NURSE ---
Addendum entered by Barney Cantu RN 01/26/22 13:17: Stool sample sent to lab, C diff negative. Pt advanced to Regular diet for lunch and tolerated this well. no N/V. Pt continues to be comfortable and deny pain. No PRN meds given yet this shift. Encouraged ambulation in [place], Pt verbalized understanding. Original Note: Pt reports consitpated BM at 2130 on 01/25. Pt then reports loose liquid stool BM's x6. Hat in toilet to catch for sample if needed. Will update surgeon. Potassium improved from 3.2 to 3.7 today. Pt denies pain at this time, denies any need for coverage with medication. Denies nausea. BS active x4. BP's supportive - 126/91 and 116/84. Pt tolerated full liquid tray and denies issues with this (malt-o-meal, orange juice). Ate 100%. Fluids still running at 75ml/hr. LS CTA and afebrile.
[2022-01-26 11:00] VITALS: BP 116/84; PULSE 73; RESP 18; TEMP 36.7; O2SAT 95
--- NOTE | 2022-01-26 12:01 | P.GSPN_ITS ---
Subjective Subjective Date Seen: 01/26/22 Interval history: Patient is doing well this morning. Yesterday his diet was advanced to full liquids. After eating a bowl of cream of wheat and some [facility] choose he says that the food ?stayed in his gut? and caused him some discomfort. He then had a large formed bowel movement around 9:30 p.m. which improved his pain. This morning he tried some more cream of wheat, which was easier to eat. Around 4:00 a.m. however he started to have liquidy stools. He denies any incontinence of stools. He has had about 5-7 bowel movements this morning. Over the last few hours he has felt left of an urgency to go. He denies any increased distention or abdominal pain. No fever or chills. Exam Narrative: Exam Narrative: General: Alert and oriented, no acute distress. Lying comfortably in bed. Respiratory: Equal breath rise bilaterally, maintained on room air CV: Well perfused Abdomen: Soft, nondistended, appropriately tender over incision. Steri-Strips in place with ecchymoses on the inferior aspect of the wound, stable. No concern for infection. Const: Vital Signs, click to edit/add: Vital Signs - 24 hr 01/25/22 13:05 01/25/22 17:00 01/25/22 15:00 Temperature 98.0 F Pulse Rate [Left P ulse Oximeter] 64 67 67 Respiratory Rate 18 18 18 Blood Pressure [Ri ght Arm] 132/91 H 141/93 H Pulse Oximetry 96 94 Oxygen Delivery Me thod Room Air Room Air Oxygen Flow Rate 1 01/25/22 21:00 01/25/22 23:00 01/26/22 00:55 Temperature 98.0 F 97.9 F Pulse Rate [Left P ulse Oximeter] 67 64 64 Respiratory Rate 18 18 18 Blood Pressure [Ri ght Arm] 144/91 H 131/95 H Pulse Oximetry 97 95 Oxygen Delivery Me thod Room Air Room Air Oxygen Flow Rate 01/26/22 04:18 01/26/22 07:00 01/26/22 07:00 Temperature 98.2 F 97.8 F Pulse Rate [Left P ulse Oximeter] 67 70 70 Respiratory Rate 18 18 18 Blood Pressure [Ri ght Arm] 125/86 126/91 H Pulse Oximetry 92 92 Oxygen Delivery Me thod Room Air Room Air Oxygen Flow Rate 1 01/26/22 11:00 Temperature 98.1 F Pulse Rate [Left P ulse Oximeter] 73 Respiratory Rate 18 Blood Pressure [Ri ght Arm] 116/84 Pulse Oximetry 95 Oxygen Delivery Me thod Room Air Oxygen Flow Rate 0 Progress Note: A&P Assessment and plan (1) S/P exploratory laparotomy: Status: Acute Assessment and Plan: Patient is a 56-year-old male status post exploratory laparotomy and lysis of adhesions for small-bowel obstruction.? He is postop day 5. Has had return of bowel function and tolerated a full liquid diet. Will advance diet slowly. He is now having liquidy stools, which isn't unexpected in the postoperative state, but will send for stool sample today. -p.o. pain meds as needed -potassium 3.7 this morning. If he continues to have significant amount of diarrhea will recheck. -SCDs, Lovenox and ambulation for DVT prophylaxis -regular diet today -follow-up on stool culture -continue IV fluids for this morning giving copious amount of diarrhea, will re- evaluate this afternoon. Anticipate discharge likely tomorrow.
[2022-01-26] MEDS: ENOXAPARIN 40 MG/0.4 ML INJ SUBCUT (12:15)
[2022-01-26] MEDS: 5 % DEX/0.9 SOD CHL+KCL 20 mEq 1,000 ML 75 ML IV (12:20)
[2022-01-26 12:36] LABS: C.Difficile Negative (Negative); CDIFFEPI 027 PRESUMPTIVE NEGATIVE (Negative)
[2022-01-26 15:00] VITALS: BP 129/86; PULSE 78; RESP 18; TEMP 36.8; O2SAT 96
--- NOTE | 2022-01-27 08:47 | P.DS_ITS ---
DS: Providers Provider Date Seen: 01/26/22 Date of admission: 01/19/22 14:12 Primary care physician: Markos Reis MD Admitting Clinician: Ellis Alvarado MD Consults: General surgery Attending Physician on discharge: Ellis Alvarado MD DS: Summary Hospital Course Hospital Course: Patient presented to the emergency department with evidence of a small-bowel obstruction. He was initially managed with medical interventions, including NG tube, NPO Gastrografin challenge. On hospital day 3 he was taken to the operating room for an exploratory laparotomy with lysis of adhesions. Postoperatively was managed with an NG tube until he had return of bowel function. His NG tube was then removed and diet slowly advanced. At the time of discharge he was tolerating a regular diet, pain was well control led with oral medications, he was ambulating without difficulty and urinating independently. He had also demonstrated return of bowel function with multiple bowel movements. Time Spent with Patient Time attestation: Total time spent providing and/or coordinating discharge services: Exam Narrative: Exam Narrative: Please see progress note from same date. Const: Vital Signs, click to edit/add: Vital Signs - 24 hr 01/26/22 11:00 01/26/22 15:00 01/26/22 15:00 Temperature 98.1 F 98.3 F Pulse Rate [Left P ulse Oximeter] 73 78 78 Respiratory Rate 18 18 18 Blood Pressure [Ri ght Arm] 116/84 129/86 Pulse Oximetry 95 96 Oxygen Delivery Me thod Room Air Room Air Oxygen Flow Rate 0 0 DS: Data Data Completed and Pending Labs on day of discharge: Labs from last 24 hours 01/26/22 11:45 Stl C.difficile Tox PCR Negative St C. diff Tox Epid 027 PRESUMPTIVE NEGATIVE Discharge Plan Discharge Disposition: Home, Self-Care Date of Admission: 01/19/22 14:12 Attending Provider on Discharge: Janeth Chapin Primary Care Provider: Markos Reis Condition: Improved Anticipated Discharge Date/Time: 01/26/22 21:00 Discharge Medications: New hydrocodone-acetaminophen 5-325 mg Tablet 1 - 2 tab PO Q6H PRN (Reason: Pain) Qty: 20 0RF Continued mirtazapine 15 mg tablet 7.5 mg PO HS Label Comments: TAKE 1/2 TABLET (7.5 MG) BY MOUTH AT BEDTIME. cyanocobalamin (vitamin B-12) 1,000 mcg tablet 1,000 mcg PO DAILY Discharge Orders: Discharge Order (Routine); Ordered 01/26/22 Ordered By: Janeth Chapin Patient Education: Hydrocodone (By mouth), Surgical Site Infections (GEN) Activity Restrictions/Additional Instructions: Wound care: Your sutures are under the skin and will dissolve over time. Leave steri strips (white bandages) over incisions until they fall off (or remove after 7 days). OK to shower but avoid bathing, soaking or swimming for 2 weeks from surgery date. Pat the incisions dry. No need to wash or scrub the area. Apply ice to the area as needed for swelling. It is also OK to use a heating pad if this provides more comfort to you. Pain control: You were prescribed a pain medication. This medication contains acetaminophen (Tylenol). If you are taking your prescribed pain pills 4 times daily, do not take additional acetaminophen. As your pain improves, you can try taking acetaminophen instead of the prescribed pain pill. It is ok to take Ibuprofen or Naproxen (per directions on packaging). This medication helps with inflammation and swelling. Take an gubv-yxl-ibtsltu stool softener while you are taking prescribed pain medications to help alleviate constipation. I recommend Senna and/or Colace. Take as directed on package. If you have not had a bowel movement in 3 days, try taking Miralax as directed on the package. All of these are available over the counter. Follow-up Follow up with Dr. Jasso in 2-3 weeks Please call if you are experiencing severe pain, nausea, vomiting, difficulty urinating, fever or have not had bowel movement in 4 days after surgery. Activity Level: Activity as Tolerated Activity Detail: No lifting greater than 20 pounds for 2 weeks Discharge Diet: Regular Follow Up Appointments: Markos Reis MD [Primary Care Provider] - (see Primary care provider as Needed.) Shana Jasso MD [Staff Physician] - 02/13/22 1:00 pm (Follow up with ) Forms: [employer] Info Instructions
== END 2022-01-26 20:45 | disposition home or self-care (01) | DRG 337 ==
LOC: ED 16:20 → MEDSURG 17:40
PROVIDERS: Internal Medicine; Surgery; Admitting Provider Internal Medicine; Emergency Provider Emergency Medicine Emergency Medical Services; PCP Family Medicine; Visit Provider Internal Medicine
PROC: 0DN80ZZ Release Small Intestine, Open Approach (ICD-10-PCS; CPT 49000; principal; 2022-01-21 11:00)
DX: K56.609 Unspecified intestinal obstruction, unspecified as to partial versus complete obstruction (principal); G47.33 Obstructive sleep apnea (adult) (pediatric); G47.00 Insomnia, unspecified; K56.50 Intestinal adhesions [bands], unspecified as to partial versus complete obstruction; E87.6 Hypokalemia; K56.7 Ileus, unspecified; L25.1 Unspecified contact dermatitis due to drugs in contact with skin; Z72.89 Other problems related to lifestyle
CPT/HCPCS: 00840; 36415; 64488; 74018; 74177; 76942; 80048; 80053; 80076; 83605; 83690; 83735; 84484; 85025; 85027; 86140; 87493; 87635; 93005; 99140; 99285; A9270; C9290; G0378; J0330; J0690; J0780; J1100; J1170; J1650; J1885; J2060; J2250; J2270; J2405; J2543; J2704; J2710; J3010; J3480; J3490; J7030; J7120; Q9967

== ENCOUNTER 2022-05-16 14:21 | Outpatient (CLI) | payer OTHER, SELFPAY ==
--- NOTE | 2022-05-16 14:30 | MR_ITS ---
[address] [address] Phone:?[phone] Fax:?[phone] Referring Physician Information: Destin Ren M.D. [id number] [facility] [address] Phone:?[phone] Fax:?[phone] Patient:Orlando Stevens D.O.B:?1965 Sex:?Male Phone:?[phone] [facility] MRN:?[id number] Exam Date:?05/16/2022 ? EXAM: MRI of the RIGHT KNEE, without contrast CLINICAL INFORMATION: Male, 57 years old, with right knee pain. INDICATION: Evaluate for meniscal tear. PRIOR SURGERY: History of knee arthroscopy in 2012. PLAIN FILMS: None available. COMPARISONS: Right knee MRI dated 01/31/2013. TECHNICAL INFORMATION: Using a 1.5T MR scanner and a localizing surface coil: sagittals: PD, PDFS coronals: PD, T2FS axials: PD, PDFS SEDATION: None CONTRAST: None FINDINGS: Knee joint: Effusion: Mild right knee effusion. Popliteal cyst: Small, unruptured popliteal (Deutsch's) cyst. Loose bodies: None. Subcutaneous and extra-articular soft tissues: Unremarkable. Ligaments: ACL: Intact ACL anteromedial and posterolateral bundles, without sprain or tear. PCL: Intact PCL, without acute or chronic injury. MCL: Mild thickening involving the proximal one third of the superficial MCL, without MCL tear (coronal PD series 7 image 18). LCL: Intact LCL, without injury. Posterolateral corner: Mild popliteus tendinopathy, without tear. Biceps femoris, iliotibial band, popliteofibular ligament and lateral gastrocnemius are intact. Posteromedial corner: No posteromedial corner soft tissue injury. Semimembranosus, pes anserine tendons and posterior oblique ligament are without injury, tendinopathy or bursitis. Extensor mechanism: Patellar tendon: Intact, without tendinopathy. Quadriceps tendon: Intact, without tendinopathy. Retinacula: Medial and lateral retinacula are intact. Fat pads: Mild edema is present throughout the knee fat pads, in keeping with synovitis. Medial compartment: Medial meniscus: Oblique horizontal undersurface tearing of the posterior horn and body measures 2.3 cm (sagittal PDFS series 6 images 22-26 and coronal STIR series 8 images 20-23). This is associated with a posterior parameniscal cyst measuring 5 x 4 x 5 mm (sagittal PDFS series 6 image 25 and axial T2FS series 4 image 23). Medial femoral condyle: Generalized grade II/III chondromalacia of the medial femoral condyle with mild marginal osteophytosis and a small intra-articular osteophyte (sagittal PDFS series 6 image 24). Medial tibial plateau: Broad-based grade II chondromalacia of the medial tibial plateau, with minimal marginal osteophytosis. Lateral compartment: Lateral meniscus: Partial thickness apical free edge radial tearing of the posterior horn measures 6 mm and involves the inner one third of the meniscus (sagittal PDFS series 6 images 9 & 10 and coronal STIR series 8 images 22 & 23). Lateral femoral condyle: Broad-based grade II/III chondromalacia of the central surface, with moderate marginal cytosis. Lateral tibial plateau: Broad-based grade II chondromalacia along the posterior aspect of the lateral tibial plateau, with minimal marginal osteophytosis. Patellofemoral joint: Patella: Generalized grade III chondromalacia of the patella, with moderate reactive osseous changes and mild marginal osteophytosis (sagittal PDFS series 6 image 16). Trochlea: Generalized grade III chondromalacia of the trochlea, with mild/moderate marginal osteophytosis. Proximal tibiofibular joint: Unremarkable, without evidence of ligament sprain injury, joint effusion or adjacent marrow edema. Bones: No stress/occult fractures or other marrow edema/pathology. IMPRESSION: 1. Oblique horizontal undersurface tearing of the posterior horn and body medial meniscus measuring 2.3 cm, with a 4 x 5 x 5 mm posterior parameniscal cyst. This was not present on the prior study dated 01/31/2013. 2. Apical free edge radial tearing of the lateral meniscal body measuring 6 mm and involving the inner one third of the meniscus, which has progressed since the prior study and may in part reflect a superimposed partial meniscectomy. 3. Moderate osteoarthritis of the patellofemoral compartment, which has significantly progressed since the prior study. 4. Mild osteoarthritis of the medial greater than lateral compartments, which have also progressed. 5. Mildly joint effusion with synovitis and a small, unruptured Deutsch cyst. 6. Chronic sequela low-grade proximal MCL sprain, without tear. No ACL, PCL, or LCL sprain/tear. BC Electronically signed on 05/17/2022 7:29:00 AM by Kenneth Harman M.D.
== END 2022-05-16 14:22 | disposition home or self-care (01) ==
LOC: MRI 14:22
PROVIDERS: PCP Surgery; Visit Provider Orthopaedic Surgery
DX: M25.561 Pain in right knee (principal); S83.249A Other tear of medial meniscus, current injury, unspecified knee, initial encounter; M23.221 Derangement of posterior horn of medial meniscus due to old tear or injury, right knee; M23.201 Derangement of unspecified lateral meniscus due to old tear or injury, left knee; M17.12 Unilateral primary osteoarthritis, left knee; M25.462 Effusion, left knee; S83.412A Sprain of medial collateral ligament of left knee, initial encounter
CPT/HCPCS: 73721

== ENCOUNTER 2022-08-01 06:06 | Day surgery (SDC) | payer OTHER, SELFPAY ==
[2022-08-01] VITALS (20 sets, daily range): BP systolic 114–150; BP diastolic 77–98; PULSE 66–77; RESP 16–18; TEMP 36.4–36.9; O2SAT 92–98; BMI 26.2
[2022-08-01] MEDS: LACTATED RINGERS 1000 ML 1,000 ML 100 ML IV ×2 (06:00→07:33)
[2022-08-01] MEDS: SODIUM CHLORIDE 0.9 % (FLUSH) 10 ML SYRINGE IVF (06:50)
--- NOTE | 2022-08-01 07:11 | W.ANESCHARGE ---
Anesthesia Charges Start Date/Time Anesthesia Start Date: 08/01/22 Anesthesia Start Time: 07:18 Stop Date/Time Anesthesia Stop Date: 08/01/22 Anesthesia Stop Time: 09:47
[2022-08-01] MEDS: CEFAZOLIN 2 GM INJ IVP (07:28)
[2022-08-01] MEDS: BUPIVACAINE 0.25% 30 ML INJECTION (07:40)
--- NOTE | 2022-08-01 07:54 | P.ORPRC_ITS ---
Procedure Note Date of procedure: 08/01/22 Procedure: PREOPERATIVE DIAGNOSIS: Right knee medial and lateral meniscus tear POSTOPERATIVE DIAGNOSIS: Right knee medial and lateral meniscus tear NAME OF OPERATION: Right knee arthroscopic partial medial and lateral meniscectomy SURGEON: Destin Ren MD INSPECTOR MACHINE CUT GLASS: Roslyn Smith PA-C ANESTHESIA: Spinal ESTIMATED BLOOD LOSS: 0 mL COMPLICATIONS: None SPECIMENS: None DRAINS: None PREOPERATIVE ANTIBIOTICS: Ancef 2 gram INDICATIONS: The patient is a 57-year-old with a history of right knee pain. MRI scan is consistent with a medial and lateral meniscus tear. Despite appropriate nonoperative management, including activity modification, anti inflammatories, [id number] pain medication, bracing, physical therapy, and injections they continue to have pain and disability. Operative intervention was offered. The risks, benefits and expected outcomes were discussed in detail. These included but were not limited to: Infection, bleeding, injury to blood vessel or nerve, venous thromboembolism. All questions were answered to their sa tisfaction. PROCEDURE: Spinal anesthesia was administered. The patient was placed supine on the operating room table. The right lower extremity was prepped and draped in the usual sterile fashion. The limb was exsanguinated with the Joradn bandage. The pneumatic tourniquet was inflated to 300 mmHg. A standard anterolateral portal was established. The arthroscope was introduced. The working portal was established anteromedially. Diagnostic arthroscopy was performed with findings as follows: The suprapatellar pouch is normal. Articular surface on the patella shows diffuse grade 3 change. Articular surface on the trochlea shows diffuse grade 3 change, with lateral osteophytes. The medial gutter is normal. The medial compartment shows diffuse grade 1/2 change on both sides of the joint. The medial meniscus has a degenerative tear of the posterior horn, into the midbody. This primarily consists of leading edge fraying and undersurface horizontal cleavage tearing. The notch shows the ACL to be intact. The lateral compartment shows grade 1 change on both sides of the joint. The lateral meniscus has degenerative tearing of the leading edge of the midbody, into the anterior horn. There is a bony loose body at the posterior tibial attachment of the lateral meniscus. The lateral gutter is normal. The posterior horn of the medial meniscus was debrided to a stable base using a combination of baskets and shaver through both portals. Likewise, the leading edge of the midbody and anterior horn of the lateral meniscus was debrided with the shaver through the anteromedial portal. The bony loose body in the posterior aspect of the lateral compartment was removed with pituitary rongeur. Arthroscopic instruments were removed, the portal sites were Steri-Stripped ashwini sed, the knee was infiltrated with 30 mL of 0.25% Marcaine without epinephrine. A dry dressing was applied, the tourniquet was released. Sponge and needle counts were correct x 2. The patient tolerated the procedure well. There were no apparent complications. They were carefully transferred to the hospital bed and taken to the postanesthesia care unit in satisfactory condition. PLAN: The patient will be discharged to home. They may weightbear as tolerates. Range of motion will be unrestricted. They will follow up in the office next week for a wound check.
[2022-08-01] MEDS: BUPIVACAINE 0.25% 30 ML 20 ML INJECTION (08:59)
--- NOTE | 2022-08-01 09:40 | PM.GSPRC ---
Operative Note Date of procedure: 08/01/22 Pre-op diagnosis: 1. Symptomatic Incisional hernia. 2. s/p exploratory laparotomy with lysis of adhesions 6 months ago. Post-op diagnosis: Same Type of Procedure: 1. Open incisional hernia repair with mesh 11 x 14 cm. Indications: 57-year-old male was seen in clinic for evaluation of an umbilical hernia. Patient underwent exploratory laparotomy and lysis of adhesions last summer for small-bowel obstruction. Patient was compliant with lifting restrictions however, a few months ago he noticed umbilical protuberance. He described it as his stomach was odd shape. Patient is very active and does fat tire biking and ski racing. He wanted to remain as active as possible and continue with his exercise routine. On clinical exam he was found to have a well-healed mid abdominal periumbilical laparotomy scar. There was incisional hernia palpated at the umbilicus with hernia defect of approximately 3 cm wide. There was also increased protuberance of the abdominal wall around the umbilicus. Patient underwent an abdominal CT scan that showed an incisional hernia defect extending above and below the umbilicus. No intra-abdominal organs were incarcerated in the hernia defect. Given patient's clinical history and his enlarging incisional hernia, an open incisional hernia repair with mesh was recommended. The procedure was discussed in detail. The risks associated procedure including infection, bleeding, injury to intra-abdominal organs, and hernia recurrence were all discussed with the patient, and he agreed to proceed. Procedure Description: After discussing the risks and benefits of the procedure, the patient signed informed consent.? The operative site was marked and the patient was brought to the operating room and placed on the operating table in supine position.? Care was taken to pad the patient's pressure points.?? The patient was then intubated by anesthesia.?? The operative site was then prepped and draped in the usual sterile fashion.? A time-out was then performed. Surgical incision was made at the previous well-healed surgical scar. This was done with a scalpel. Subcutaneous fat was thin and was divided with a scalpel. Near the umbilicus thin peritoneum and scar was noted and that was incised with Metzenbaum scissors. The abdominal wall below the scar was explored with a finger and no significant omental attachments were palpated. The subcutaneous tissue incision was then extended superiorly and inferiorly with cautery. The abdomen was entered and omental adhesions were noted to be adherent to peritoneum. Those were taken down with cautery. I then proceeded with developing retro rectus space for mesh placement. The anterior fascia was grasped and posterior sheath and peritoneum were incised with cautery. Retro rectus space was entered and this dissection was extended superiorly and inferiorly to create space for mesh placement. Hemostasis was achieved with cautery. This was similarly done on the left and right side of the abdomen. The midline linea alba was divided with cautery superiorly and inferiorly and lateral retro rectus space is were connected. Moderate amount of scar tissue was noted during this dissection. Hernia sac in the subcutaneous space was excised with cautery and discarded. The posterior sheath and peritoneum were then closed with 2 running 0-0 Vicryl sutures. The fascial defect was approximately 10 cm. The anterior fascia was mobilized off subcutaneous tissue with cautery to allow for tension-free closure. Local anesthetic was injected into the anterior fascia and subcutaneous space. A Ventrio mesh 11 x 14 cm was then placed into the retro rectus space. Increase stitches were placed superiorly and inferiorly with 0-0 Nurolon. Anterior fascia was then closed over the mesh with 2 running 0-0 Maxon sutures. There was no undue tension on fascial closure. Subcutaneous fat was reapproximated with interrupted 2-0 Vicryl sutures. The umbilicus was tacked down to the fascia with 3-0 Vicryl suture. Dermis was reapproximated with interrupted 3-0 Vicryl sutures. The skin was closed with a running 4-0 Monocryl stitch. Steri-Strips and sterile dressings were placed over the incision. ? The patient was then woken and transported to the recovery area in stable condition. ? The patient tolerated the procedure well. Findings: 10 cm fascial defect repaired with retro rectus mesh placement. Anesthesia: GETA Surgeon: Jarod Odom MD Estimated blood loss (mL): 20 Condition: stable Disposition: PACU
[2022-08-01] MEDS: hydrOXYzine pamoate 25 MG CAPSULE PO (09:48)
--- NOTE | 2022-08-01 09:50 | W.ANESCHARGE ---
Anesthesia Charges Start Date/Time Anesthesia Start Date: 08/01/22 Anesthesia Start Time: 07:18 Stop Date/Time Anesthesia Stop Date: 08/01/22 Anesthesia Stop Time: 09:47
[2022-08-01] MEDS: fentaNYL 100 MCG/2 ML inj 50 MCG IVP ×2 (09:54→10:00)
[2022-08-01] MEDS: HYDROmorphone 0.5 mg/0.5 ml inj IVP ×2 (10:14→10:44)
[2022-08-01] MEDS: HYDROCODONE-ACETAMIN 5-325 MG 1 TAB PO (11:50)
[2022-08-01 11:56] LABS: SARS PCR* Negative SARS-CoV-2 (Negative)
== END 2022-08-01 13:46 | disposition home or self-care (01) ==
PROVIDERS: Orthopaedic Surgery; PCP Surgery; Visit Provider Surgery
PROC: (CPT 49593; principal; 2022-08-01 07:15)
PROC: (CPT 29870; 2022-08-01 07:15)
DX: K43.2 Incisional hernia without obstruction or gangrene (principal); M23.221 Derangement of posterior horn of medial meniscus due to old tear or injury, right knee; M23.241 Derangement of anterior horn of lateral meniscus due to old tear or injury, right knee
CPT/HCPCS: 49593; 29880; 00832; 87635; A4467; A9270; C1781; J0330; J0690; J1100; J1170; J2250; J2405; J2704; J3010; J3490; J7120

== ENCOUNTER 2023-04-30 07:03 | Outpatient (CLI) | payer OTHER, SELFPAY ==
--- NOTE | 2023-04-30 07:15 | MR_ITS ---
[address] [address] Phone:?[phone] Fax:?[phone] Referring Physician Information: Aron Allred M.D. [address] [facility] [address] Phone:?[phone] Fax:?[phone] Patient:Orlando Stevens D.O.B:?1965 Sex:?Male Phone:?[phone] [facility] MRN:?[id number] Exam Date:?04/30/2023 EXAM: MRI of the RIGHT KNEE, without contrast CLINICAL INFORMATION: Male, 58 years old, with right knee pain. INDICATION: Evaluate knee pain. PRIOR SURGERY: None reported. PLAIN FILMS: Knee radiographs dated 05/01/2022. COMPARISONS: Right knee MRI dated 05/16/2022 and 01/31/2013. TECHNICAL INFORMATION: Using a 1.5T MR scanner and a localizing surface coil: sagittals: PD, PDFS coronals: PD, T2FS axials: PD, PDFS SEDATION: None CONTRAST: None FINDINGS: Knee joint: Effusion: Mild-moderate right knee effusion. Popliteal cyst: Tiny, unruptured popliteal (Deutsch's) cyst. Loose bodies: None. Subcutaneous and extra-articular soft tissues: Unremarkable. Ligaments: ACL: Intact ACL anteromedial and posterolateral bundles, without sprain or tear. PCL: Intact PCL, without acute or chronic injury. MCL: Intact MCL superficial and deep layers, without injury. LCL: Intact LCL, without injury. Posterolateral corner: [Mild popliteus tendinopathy, without tear. Biceps femoris, iliotibial band, popliteofibular ligament and lateral gastrocnemius are intact. Posteromedial corner: No posteromedial corner soft tissue injury. Semimembranosus, pes anserine tendons and posterior oblique ligament are without injury, tendinopathy or bursitis. Extensor mechanism: Patellar tendon: Intact, without tendinopathy. Quadriceps tendon: Intact, without tendinopathy. Retinacula: Medial and lateral retinacula are intact. Fat pads: Mild edema-like signal is present throughout the knee fat pads, in keeping with synovitis. Medial compartment: Medial meniscus: Status post partial medial meniscectomy. With a blunted/diminutive appearance of the posterior horn and body apical free edge and superior surface tearing of the posterior horn is present over a length of 1.6 cm (sagittal PDFS series 6 images 21-25). This is associated with a 6 x 7 x 3 mm flap fragment located superior to the posterior horn/root junction (coronal STIR series 8 image 24 and sagittal PDFS series 6 image 22). 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 Medial tibial plateau: Generalized grade II chondromalacia of the medial tibial plateau. Lateral compartment: Lateral meniscus: Partial thickness radial tearing of the lateral meniscal posterior horn is present over a length of 7 mm and involves the inner one third of the meniscus (sagittal PDFS series 6 images 11-9). No meniscal extrusion or parameniscal cyst. Lateral femoral condyle: Broad-based grade II/III chondromalacia of the central surface, with mild/moderate marginal osteophytosis. Lateral tibial plateau: Broad-based grade II chondromalacia of the posterior lateral tibial plateau, with minimal marginal osteophytosis. Patellofemoral joint: Patella: Generalized grade III chondromalacia of the patella, with mild/moderate marginal osteophytosis and reactive osseous changes. Trochlea: Generalized grade III chondromalacia of the trochlea, with mild- moderate marginal osteophytosis. Proximal tibiofibular joint: Unremarkable, without evidence of ligament sprain injury, joint effusion or adjacent marrow edema. Bones: No stress/occult fractures or other marrow edema/pathology. IMPRESSION: 1. Status post partial medial meniscectomy with recurrent apical free edge and superior surface tearing of the posterior horn measuring 1.6 cm and a 6 x 7 x 3 mm flap fragment located superior to the posterior horn/root junction. 2. Partial thickness radial tearing of the lateral meniscal body measuring 7 mm and involving the inner one third of the meniscus, which is unchanged compared to the prior study dated 05/16/2022. 3. Tricompartmental osteoarthritis of the right knee: -Moderate osteoarthritis of the patellofemoral compartment, unchanged. -Mild osteoarthritis of the medial and lateral compartments, unchanged. 4. Mild-moderate knee joint effusion with synovitis and a small, unruptured Deutsch cyst. 5. No cruciate or collateral ligament sprain/tear. 6. No osseous or myotendinous abnormality. BC Electronically signed on 04/30/2023 12:35:00 PM by Kenneth Harman M.D.
== END 2023-04-30 07:04 | disposition home or self-care (01) ==
PROVIDERS: PCP Surgery; Visit Provider Family Medicine
DX: M25.561 Pain in right knee (principal); S83.241A Other tear of medial meniscus, current injury, right knee, initial encounter; S83.281A Other tear of lateral meniscus, current injury, right knee, initial encounter; M17.11 Unilateral primary osteoarthritis, right knee; M25.461 Effusion, right knee; G89.29 Other chronic pain
CPT/HCPCS: 73721

== ENCOUNTER 2023-05-22 10:47 | Outpatient (RCR) | payer OTHER, SELFPAY | END 2023-09-19 23:59 | disposition home or self-care (01) | PROVIDERS: PCP Surgery; Visit Provider Orthopaedic Surgery | DX: Z98.890 Other specified postprocedural states (principal); M62.81 Muscle weakness (generalized); M25.561 Pain in right knee; Z51.89 Encounter for other specified aftercare | CPT/HCPCS: 97110; 97161 ==